=== PATIENT | male | born 1965 | race Caucasian/White ===

== ENCOUNTER → 2017-12-08 08:12 | Outpatient (REF) | payer BC, SELFPAY ==
[2017-12-08 13:40] LABS: ALT 35 U/L (12-78); AST 17 U/L (15-37); Alkaline Phosphatase 50 U/L (46-116); Anion Gap 9.8 mmol/L (3-11); BUN 19 mg/dL (7-18); Bilirubin, Total 0.7 mg/dL (0.2-1.0); CO2 26.2 mmol/L (21.0-32.0); CREATININE 1.03 mg/dL (0.70-1.30); Calcium 9.2 mg/dL (8.5-10.1); Chloride 102 mmol/L (98-107); Cholesterol 179 mg/dL (50-200); Glucose 199 mg/dL (70-100); HDL Cholesterol 45 mg/dL (40-60); LDL CHOLESTEROL 116 mg/dL (<100); Potassium 4.3 mmol/L (3.5-5.1); Sodium 138 mmol/L (136-145); Total Protein 6.8 g/dL (6.4-8.2); Triglyceride 135 mg/dL (30-150)
== END ==
LOC: NCHCN 08:12
PROVIDERS: PCP Family Medicine; Visit Provider Family Medicine
DX: I10 Essential (primary) hypertension (principal); E11.9 Type 2 diabetes mellitus without complications; E78.5 Hyperlipidemia, unspecified
CPT/HCPCS: 80053; 80061; 83721; 84443

== ENCOUNTER 2018-04-16 15:34 | Outpatient (REF) | payer BC, SELFPAY ==
[2018-04-16 20:17] LABS: COMMENT (LAB VIEW ONLY) 181.24 mg/dL; Microalb ug/mg Crea 4.6 ug/mg Cr
== END 2018-04-16 15:54 ==
LOC: NCHCN 15:34
PROVIDERS: PCP Family Medicine; Visit Provider Family Medicine
DX: E11.9 Type 2 diabetes mellitus without complications (principal)
CPT/HCPCS: 82043; 82570

== ENCOUNTER 2019-01-22 17:29 | Outpatient (REF) | payer OTHER, SELFPAY ==
[2019-01-22 18:40] LABS: Anion Gap 11.7 mmol/L (3-11); BUN 19 mg/dL (7-18); CO2 25.3 mmol/L (21.0-32.0); CREATININE 1.02 mg/dL (0.70-1.30); Calcium 8.9 mg/dL (8.5-10.1); Chloride 104 mmol/L (98-107); Glucose 140 mg/dL (70-100); Potassium 4.2 mmol/L (3.5-5.1); Sodium 141 mmol/L (136-145)
== END 2019-01-22 17:49 ==
LOC: NCHCN 17:29
PROVIDERS: PCP Family Medicine; Visit Provider Family Medicine
DX: I10 Essential (primary) hypertension (principal)
CPT/HCPCS: 80048

== ENCOUNTER 2020-01-07 23:23 | Outpatient (REF) | payer OTHER, SELFPAY ==
[2020-01-07 19:08] LABS: BUN 17 mg/dL (7-18); CREATININE 0.93 mg/dL (0.70-1.30); Calcium 9.4 mg/dL (8.5-10.1); Chloride 106 mmol/L (98-107); Glucose 137 mg/dL (74-106); Potassium 4.2 mmol/L (3.5-5.1); Sodium 142 mmol/L (136-145)
[2020-01-07 19:17] LABS: Hemoglobin A1C 7.8 % (<5.7)
== END 2020-01-07 23:43 ==
LOC: NCHCN 23:23
PROVIDERS: PCP Family Medicine; Visit Provider Family Medicine
DX: I10 Essential (primary) hypertension (principal); E11.9 Type 2 diabetes mellitus without complications
CPT/HCPCS: 80048; 83036

== ENCOUNTER 2020-01-17 02:40 | Outpatient (CLI) | payer OTHER, SELFPAY ==
[2020-01-18 20:22] LABS: COVID-19 RT-PCR Result NEGATIVE (Negative)
== END 2020-01-17 03:00 ==
PROVIDERS: PCP Family Medicine; Visit Provider Surgery
DX: Z01.818 Encounter for other preprocedural examination (principal)
CPT/HCPCS: U0003

== ENCOUNTER 2020-01-20 06:12 | Day surgery (SDC) | payer OTHER, SELFPAY ==
[2020-01-20 06:31] VITALS: BP 133/82; PULSE 69; RESP 16; TEMP 36.4; O2SAT 100
--- NOTE | 2020-01-20 06:41 | W.PREOPHP ---
Date of service: 01/20/20 Time of Service: 06:42 Assessment and Plan Assessment and plan (1) Nausea: Status: Acute Assessment and plan: (3) Nausea: A\\ New onset of nausea mostly in the middle of the night. No history of gastritis or reflux. Discussed differential diagnosis of gastritis. Discussed trialing him on an H2 don like Pepcid versus doing an upper endoscopy. We could do the upper endoscopy at the same time as his colonoscopy. He is in agreement with the upper endoscopy. He can try some Tums in the meantime when he wakes up with the nausea in the middle of the night. If it starts to become nightly issue then I have asked him to call me and I will put him on Pepcid to see if this will help. We also discussed COVID testing prior to the upper endoscopy. I discussed quarantine after the test until his procedure which he is in agreement with. P\\ EGD under sedation Risks, benefits and complications have been reviewed. Complications include but are not limited to bleeding, pain, perforation, sore throat, aspiration, and adverse reaction to the medications. Questions were entertained and answered to their satisfaction and they wished to proceed. No guarantees were given or implied. (2) Encounter for colonoscopy due to history of adenomatous colonic polyps: Status: Acute Assessment and plan: A\\ Harry is a pleasant 54-year-old gentleman who underwent a colonoscopy in 2014 and was found to have a tubular adenoma. He is here today to discuss a follow-up colonoscopy. He denies any changes to his bowel habits, melena, hematochezia or abdominal pain. He has no family history of colon cancer. The prep and procedure were reviewed with the patient. He is anticoagulated on Xarelto for history of PE and DVT. P\\ Colonoscopy under sedation Stop Xarelto 3 days prior Risks, benefits and complications have been reviewed. Complications include but are not limited to bleeding, pain, perforation, missed small lesion/polyp, sore throat, aspiration and adverse reaction to the medications. Questions were entertained and answered to their satisfaction and they wished to proceed. No guarantees were given or implied. History of Present Illness Narrative: Harry is back to see me today in the office to discuss a repeat colonoscopy. His last colonoscopy was in October 2014 and he had a tubular adenoma. He has not had any changes in bowel habits, melena, hematochezia, unintentional weight loss, or abdominal pain. He has no family history of colon cancer. He does tell me that over the last few weeks he has developed some nausea. Most of the time the nausea is in the middle of the night. He will wake up and feel like he has to throw up but does not. No burning epigastric pain. He has no history of gastritis, gastric ulcers or reflux. He does state that he has been quite stressed at work. He has not tried any medications. He has not had any major changes in his health since I saw him in 2014. He does not complaining of any chest pain, or shortness of breath. He is on Xarelto for a history of PE and DVTs. There have been no changes in his health since he was last seen in the office. His COVID test was negative Review of Systems Cardiovascular Cardiovascular: Denies chest pain, Denies chest pain at rest, Denies irregular heart rhythm, Denies dyspnea and Denies dyspnea on exertion Respiratory Respiratory: Reports cough, Denies dyspnea and Denies dyspnea on exertion Gastrointestinal Gastrointestinal: Reports as per HPI Genitourinary Genitourinary: Denies dysuria, Reports urinary incontinence and Denies urinary urgency Endocrine Endocrine: Reports system reviewed and no additional complaints, except as documented Hematologic/Lymphatic Hematologic/Lymphatic: Denies easy bruising and Denies lymphadenopathy [facility] Medical History Actinic keratoses Diabetes DVT of leg (deep venous thrombosis) Dyslipidemia Family history of gout HTN (hypertension) Hx of Wells's palsy Metabolic syndrome Nephrolithiasis Obesity Paraneoplastic syndrome pt. unaware PE (pulmonary embolism) 2011 T2DM (type 2 diabetes mellitus) Toe pain Tubular adenoma 10/2014 w/ Dr. Leda Ko, repeat 5 years. Surgical History Removal of foreign body left foot S/P colonoscopy 10/2014- Tubular adenoma Tonsillectomy and adenoidectomy Social History Smoking/Tobacco Use Status: Current-Occasional Tobacco Type: cigars Alcohol Intake: current Alcohol Intake frequency: a few times a month Alcohol type: beer Drug use: Occasionally Substance use type: marijuana Details: alcohol: t-4, two beers. Marijuana: t-4, couple hits Current gender identity: male Do you feel safe at home: Yes Do you feel safe in your relationship?: Yes Meds Home Medications and Allergies Home Medications Medication Instructions Recorded Confirmed Type Xarelto 20 mg PO DAILY tab-cap 09/11/14 01/17/20 History metformin 1 tab PO BID 09/11/14 01/17/20 History omega-3 fatty acids [Fish Oil] 1 cap PO DAILY 03/23/16 01/17/20 History acetaminophen 500 mg capsule 500 mg PO Q6H PRN 11/04/19 12/03/19 History cholecalciferol (vitamin D3) 25 25 mcg PO DAILY 11/04/19 01/17/20 History mcg (1,000 unit) capsule clotrimazole 1 % topical cream 1 applic TP BID 11/04/19 01/17/20 History sitagliptin 50 mg tablet 50 mg PO DAILY 11/04/19 01/17/20 History valsartan 160 mg tablet 160 mg PO DAILY 11/04/19 01/17/20 History bisacodyl 5 mg tablet,delayed 5 mg PO ONCE #4 tab 12/03/19 12/03/19 Rx release polyethylene glycol 3350 17 gram 255 g PO DAILY #15 each 12/03/19 12/03/19 Rx oral powder packet Allergies Allergy/AdvReac Type Severity Reaction Status Date / Time hay fever AdvReac Mild Wheezing Uncoded 12/03/19 11:33 Exam Const General: healthy appearing and comfortable Resp Effort & Inspection: normal respiratory effort Auscultation: clear to auscultation bilaterally Cardio Rate: regular rate Rhythm: regular rhythm Heart Sounds: no click, no gallops and no murmurs Results Last Vital Signs Temp 97.5 F L 01/20/20 06:31 Pulse 69 01/20/20 06:31 Resp 16 01/20/20 06:31 BP 133/82 01/20/20 06:31 Pulse Ox 100 01/20/20 06:31
--- NOTE | 2020-01-20 06:45 | ENDO_ITS ---
Date of service: 01/20/20 Time of Service: 07:25 Endoscopy Report DATE OF PROCEDURE: 01/20/20 PRE-OP DIAGNOSIS: Nausea, Hx of adenomatous polyps POST-OP DIAGNOSIS: other (Gastric ulcers, mild reflux esophagitis, colon polyps) PROCEDURE: 1. EGD with biopsies 2. Colonoscopy with polypectomy SURGEON: Tyra Ko ANESTHESIA: other (General/ASA 2/Latonia Racielki, ONLINE MARKETING SPECIALIST) ESTIMATED BLOOD LOSS: 3 PATHOLOGY: other (gastric ulcer bx, GE junction bx, Ascending colon polyp, transverse colon polyp x2) COMPLICATIONS: None DISPOSITION: same day INDICATIONS: Harry is back to see me today in the office to discuss a repeat colonoscopy. His last colonoscopy was in October 2014 and he had a tubular adenoma. He has not had any changes in bowel habits, melena, hematochezia, unintentional weight loss, or abdominal pain. He has no family history of colon cancer. He does tell me that over the last few weeks he has developed some nausea. Most of the time the nausea is in the middle of the night. He will wake up and feel like he has to throw up but does not. No burning epigastric pain. He has no history of gastritis, gastric ulcers or reflux. He does state that he has been quite stressed at work. He has not tried any medications. He has not had any major changes in his health since I saw him in 2014. He does not complaining of any chest pain, or shortness of breath. He is on Xarelto for a history of PE and DVTs. PREP: Miralax/Dulcolax PROCEDURE START TIME: 07:25 PROCEDURE END TIME: 08:03 COLONOSCOPY RETRACTION TIME: 14 minutes FINDINGS: Upper- moderate gastritis with 2 shallow ulcers, mild esophagitis Lower- 3 sessile polyps <10 mm PROCEDURE DESCRIPTION: After informed consent was obtained the patient was take to the procedure room and placed in a supine position. Monitors were applied and a time out was done. The patients name, date of , procedure type, allergies to medications and metal in their body was reviewed. A bite block was placed and the patient was sedated. Once sedated and comfortable the gastroscope was advanced through the oropharynx which was grossly normal into the esophagus. The proximal and mid- esophagus were normal. In the distal esophagus there was mild inflammation noted. The scope was advanced into the stomach and through the pylorus into the 3rd portion of the duodenum. The duodenum was noted to be normal. The scope was retracted back into the stomach. There was moderate inflammation of the antrum. Biopsies were done to rule out H. pylori. There were 2 shallow ulcers, which were biopsied. The scope was retro-flexed. The cardia and fundus were noted to be normal. There was no hiatal hernia noted. The scope was retracted back into the esophagus and biopsies were done of the GE junction to rule out Potter's. The Z line was regular. The GE junction was at 38 cm. While the patient was still sedated they were placed in a left decubitous position. A rectal exam was done. External exam was normal. Internal exam revealed a normal sphincter tone and no palpable masses. The prostate felt smooth. The scope was then introduced and retro-flexed. No internal hemorrhoids were identified. The scope was then advanced to the cecum without difficulty. The ileocecal valve and appendiceal orifice were identified. The prep was adequate. The scope was then slowly retracted over 14 minutes back into the rectum. 3 small sessile polyps were removed with cold forceps in the ascending colon and transverse colon x2. The scope was removed and the patient was woken up and taken back to Same day surgery in stable condition. The patient tolerated the procedure well and there were no immediate complications. Follow up: 2 weeks in the office. I will start patient on Omeprazole 40 mg daily. Colonoscopy follow up most likely in 3-7 years depending on final pathology results
--- NOTE | 2020-01-20 06:47 | W.PM.DSUDISC ---
Discharge Plan Disposition Patient Disposition: HOME Condition: Good Discharge Details Reason For Visit: nausea, hx of polyps Attending Provider: Tyra Ko Primary Care Provider: Ajay Monteiro Home Meds and New Rx's Prescriptions: New omeprazole 40 mg capsule,delayed release(DR/EC) 40 mg PO QHS Qty: 30 RF: 5 Continued Xarelto 10 MG tablet 20 mg PO DAILY RF: 0 metformin 500 MG tablet 1 tab PO BID RF: 0 clotrimazole [Antifungal (clotrimazole)] 1 % cream 1 applic TP BID RF: 0 acetaminophen 500 mg capsule 500 mg PO Q6H PRNRF: 0 Januvia 50 mg tablet 50 mg PO DAILY RF: 0 valsartan 160 mg tablet 160 mg PO DAILY RF: 0 cholecalciferol (vitamin D3) 25 mcg (1,000 unit) capsule 25 mcg PO DAILY RF: 0 Fish Oil 300 MG capsule 1 cap PO DAILY RF: 0 Discontinued bisacodyl [Dulcolax (bisacodyl)] 5 mg tablet,delayed release (DR/EC) 5 mg PO ONCE Qty: 4 RF: 0 polyethylene glycol 3350 17 gram powder in packet 255 g PO DAILY Qty: 15 RF: 0 Discharge Instructions Instructions: Gastritis (DC), Diet for Stomach Ulcers and Gastritis (ED), Colorectal Polyps (DC), Esophagitis (DC) Additional Instructions: Findings: moderate inflammation of the stomach with 2 shallow ulcers mild inflammation of the esophagus due to reflux 3 small polyps Follow up: 2 weeks in the office Please call if you develop: fevers >101.5 Nausea or Vomiting Abdominal pain that is not transient DAY SURGERY UNIT POST ENDOSCOPY INSTRUCTIONS 1. Because there will be medication in your system for the next 24 hours, you may feel a little sleepy. Your coordination will be affected. Therefore: a. Do not drive or operate dangerous equipment for 24 hours. b. Do not drink alcohol beverages for 24 hours (not even beer). c. Plan to go home and rest for the day. 2. Generally there are no restrictions on your activity after a day or so has gone by, but you may feel a bit fatigued for a few days. 3 After you arrive home you may have a light meal and return to a normal diet as you can tolerate it without feeling sick to your stomach. 4. After surgery, you may feel pain or discomfort. This should be only transient, but if it persists please contact your doctor. 5. If there are any questions regarding the findings of your procedure, please feel free to contact your doctor. 6. If you are unable to contact your doctor with a problem, contact the hospital at [phone]. 7. Continue all your regular medications unless directed otherwise. I understand the above instructions and have no questions. Signature of Patient or Responsible Adult Escort Date/Time Name of Responsible Adult Escort Signature of Nurse Date/Time Referrals: Tyra Ko MD [ [facility] STAFF PHYSICIAN] - 02/04/20 8:30 am Activity:: Activity as Tolerated Diet:: low acid Discharge Orders Discharge Orders: Discharge Order (Routine); Ordered 01/20/20 Ordered By: Tyra Ko DS: Diagnosis Discharge Diagnosis (1) Nausea: Status: Acute (2) Encounter for colonoscopy due to history of adenomatous colonic polyps: Status: Acute
[2020-01-20] MEDS: Lactated Ringers 1,000 ML 80 ML IV (06:55)
[2020-01-20] MEDS: Sodium Citrate 30 ML CUP (07:20)
--- NOTE | 2020-01-20 07:28 | BOWEL_PTH ---
PATIENT: Harry Cano LOC: [facility] U#:[id number] AGE/SX: 54/M ROOM: RE01/20/[address]: Tyra Ko MD : 1965 BED: DIS: 01/20/2020 SPEC #: [id number] RECD: 01/20/20 12:30 STATUS: GUEVARA RE #: [id number] QUINTON: 01/20/20 07:[address]: Tyra Ko DEPT: Surgical Specimen RECD BY: Farnaz Ramires ENTERED: 01/20/20 12:32 SP TYPE: Bowel OTHR DR: Ajay Monteiro Tissues: 1 - STOMACH BIOPSY 2 - ESOPHAGUS BIOPSY 3 - BIOPSY BOWEL 4 - BIOPSY BOWEL Procedures: GROSS AND MICRO LEVEL 4 Comments: [id number]
[2020-01-20 08:35] VITALS: BP 124/89; PULSE 67; RESP 16; TEMP 36.1; O2SAT 99
== END 2020-01-20 09:10 | disposition home or self-care (01) ==
PROVIDERS: PCP Family Medicine; Visit Provider Surgery
PROC: (CPT 45380; principal; 2020-01-20 07:30)
DX: Z12.11 Encounter for screening for malignant neoplasm of colon (principal); K29.60 Other gastritis without bleeding; D12.2 Benign neoplasm of ascending colon; D12.3 Benign neoplasm of transverse colon; Z86.010 Personal history of colon polyps
CPT/HCPCS: 45380; 43239; 88305; NC; J2001; J2704

== ENCOUNTER 2020-07-06 15:59 | Outpatient (REF) | payer OTHER, SELFPAY ==
[2020-07-06 19:37] LABS: COMMENT (LAB VIEW ONLY) 32.58 mg/dL
== END 2020-07-06 16:00 | disposition home or self-care (01) ==
LOC: NCHCN 15:59
PROVIDERS: PCP Family Medicine; Visit Provider Family Medicine
DX: E11.9 Type 2 diabetes mellitus without complications (principal)
CPT/HCPCS: 82043; 82570

== ENCOUNTER 2021-01-21 17:35 | Outpatient (REF) | payer OTHER, SELFPAY ==
[2021-01-21 15:44] LABS: Anion Gap 10.3 mmol/L (3-11); BUN 17 mg/dL (7-18); CO2 24.7 mmol/L (21.0-32.0); Calcium 9.2 mg/dL (8.5-10.1); Chloride 105 mmol/L (98-107); Glucose 184 mg/dL (74-106); Potassium 4.4 mmol/L (3.5-5.1); Sodium 140 mmol/L (136-145)
[2021-01-21 15:52] LABS: Hemoglobin A1C 6.3 % (<5.7)
== END 2021-01-21 17:36 | disposition home or self-care (01) ==
LOC: NCHCN 17:35
PROVIDERS: PCP Family Medicine; Visit Provider Family Medicine
DX: E11.9 Type 2 diabetes mellitus without complications (principal); I10 Essential (primary) hypertension
CPT/HCPCS: 80048; 83036

== ENCOUNTER → 2021-07-29 08:38 | Outpatient (CLI) | payer OTHER, SELFPAY ==
--- NOTE | 2021-07-29 | DI.RAD_ITS ---
Exam(s) XR TOE RT GREAT EXAM: XR TOE RT GREAT CLINICAL HISTORY: GREAT TOE PAIN, M79.676, WITHOUT CLEAR INFLAMMATION, H/O GOUT. TECHNIQUE: 2D digital imaging was performed. Three images were obtained. COMPARISON: No exams were available for comparison FINDINGS: BONES: No acute fracture is present. No bony destructive lesion is seen. JOINTS: No dislocation present. Moderate degenerative changes are seen at the 1st MTP joint with maggie nt space narrowing and periarticular spurring. There is a moderate-sized spur on the dorsal aspect o f the head of the 1st metatarsal. SOFT TISSUE: Normal. 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 DATA REPOSITORY: RADIATION DOSE DELIVERED:
== END ==
PROVIDERS: PCP Family Medicine; Visit Provider Family Medicine
DX: M79.674 Pain in right toe(s) (principal); M19.071 Primary osteoarthritis, right ankle and foot
CPT/HCPCS: 73660

== ENCOUNTER 2022-02-21 18:24 | Outpatient (REF) | payer OTHER, SELFPAY ==
[2022-02-21 19:20] LABS: Anion Gap 8.8 mmol/L (3-11); BUN 20 mg/dL (7-18); CO2 27.2 mmol/L (21.0-32.0); CREATININE 1.1 mg/dL (0.70-1.30); Calcium 9.3 mg/dL (8.5-10.1); Chloride 100 mmol/L (98-107); Estimated GFR 78.79 (mL/min/1.73m2); Glucose 173 mg/dL (74-106); Potassium 4.1 mmol/L (3.5-5.1); Sodium 136 mmol/L (136-145)
[2022-02-23 10:06] LABS: Hepatitis C Ab w Rflx HCV PCR Negative (Negative)
== END 2022-02-21 18:25 | disposition home or self-care (01) ==
LOC: NCHCN 18:24
PROVIDERS: PCP Family Medicine; Visit Provider Family Medicine
DX: I10 Essential (primary) hypertension (principal); E11.9 Type 2 diabetes mellitus without complications; Z11.59 Encounter for screening for other viral diseases
CPT/HCPCS: 80048; 86803

== ENCOUNTER 2023-03-02 14:21 | Outpatient (REF) | payer OTHER, SELFPAY ==
[2023-03-02 19:22] LABS: Anion Gap 12.1 mmol/L (3-11); BUN 15 mg/dL (7-18); CO2 24.9 mmol/L (21.0-32.0); Calcium 9.6 mg/dL (8.5-10.1); Chloride 104 mmol/L (98-107); Estimated GFR 87.78 (mL/min/1.73m2); Glucose 135 mg/dL (74-106); Potassium 4.4 mmol/L (3.5-5.1); Sodium 141 mmol/L (136-145)
== END 2023-03-02 14:22 | disposition home or self-care (01) ==
LOC: NCHCN 14:21
PROVIDERS: PCP Family Medicine; Visit Provider Family Medicine
DX: E11.9 Type 2 diabetes mellitus without complications (principal)
CPT/HCPCS: 80048

== ENCOUNTER 2023-06-30 20:50 | Outpatient (REF) | payer BC, SELFPAY ==
[2023-06-30 18:50] LABS: Hemoglobin A1C 7.2 % (<5.7)
== END 2023-06-30 20:51 | disposition home or self-care (01) ==
LOC: NCHCN 20:50
PROVIDERS: PCP Family Medicine; Referring Provider Family Medicine; Visit Provider Family Medicine
DX: E11.9 Type 2 diabetes mellitus without complications (principal)
CPT/HCPCS: 83036

== ENCOUNTER 2023-10-27 15:27 | Outpatient (REF) | payer BC, SELFPAY ==
[2023-10-27 20:22] LABS: Microalb ug/mg Crea 3.9 ug/mg Cr
== END 2023-10-27 15:28 | disposition home or self-care (01) ==
LOC: NCHCN 15:27
PROVIDERS: PCP Family Medicine; Visit Provider Student in an Organized Health Care Education/Training Program
DX: E11.9 Type 2 diabetes mellitus without complications (principal)
CPT/HCPCS: 82043; 82570

== ENCOUNTER 2024-03-29 16:35 | Outpatient (REF) | payer BC, SELFPAY ==
--- OUTSIDE RECORDS SUMMARY | 2024-03-29 16:51 | XMS_ITS | Clinical Summary ---
Author Organization [facility] Address [address] [place] [id number] Care Team Providers Care Press Reader Name Role Phone Jack Craft MD Primary Care Provider Unavaila ble Social History Tobacco Use Types Packs/Day Years Used Date Smoking Tobacco: Never Assessed Interpersonal Safety Answer Date Record ed Physically Hurt Never 02/02/2020 Verbally Threaten Not on file 02/02/2020 Sex and Gender Information Value Date Recorded Sex Assigned at Not on file Legal Sex Male 18:30 EST Gender Identity Not on file Sexual Orientation Not on file Plan of Treatment Health Maintenance Due Date Last Done Comments Hepatitis B Vaccine (1 of 3 - 19+ 3-dose series) 08/02 COVID-19 Vaccine ( season) 2024 Hepatitis C Screen Completed 02/21/2022 Procedures Procedure Name Priority Date/Time Associated Diagnosis Comments HEPATITIS C AB W REFLEX TO HCV RNA BY PCR Routine 02/21/2022 16:15 EDT from Last 3 Months or Most Recently Relevant to Health Maintenance Results * HEPATITIS C AB W REFLEX TO HCV RNA BY PCR (02/21/2022 16:15 EDT) Hep C Antibody Negative Negative 02/23/2022 10:01 EDT [facility] Blood VENOUS BLOOD / Unknown 02/21/2022 16:15 EDT 02/22/2022 16:50 EDT us Provider Outr Resulting Lab CHEMISTRY & BLOOD GA S ORDERABLES Final Result [facility] [address] [place] [id number] from Last 3 Months or Most Recently Relevant to Health Maintenance [place] [address] [place] [address] Care Teams Press Reader Relationship Specialty Start Date End Date Jack Craft MD PCP - General 11/05/14
--- OUTSIDE RECORDS SUMMARY | 2024-03-29 16:51 | XMS_ITS | Encounter Summary ---
Author Organization [facility] Address [address] [place] [address] Care Team Providers Care Sports Internship Name Role Phone Jack Craft MD Primary Care Provider Unavaila ble Encounter Details Date Type Department Care Team (Late st Contact Info) Description 01/20/2020 Lab Requisition [facility] - [facility] [address] [place] [address] Neda Ko MD [address] [place] [address] [place] [address] Nausea Social History Tobacco Use Types Packs/Day Years Used Date Smoking Tobacco: Never Assessed Sex and Gender Information Value Date Recorded Sex Assigned at Not on file Legal Sex Male 18:30 EST Gender Identity Not on file Sexual Orientation Not on file documented as of this encounter Plan of Treatment Not on file documented as of this encounter Procedures Procedure Name Priority Date/Time Associated Diagnosis Comments SURGICAL PATHOLOGY Today 01/20/2020 7:28 EDT Nausea documented in this encounter Results * SURGICAL PATHOLOGY (01/20/2020 7:28 EDT) Final Diagnosis A. STOMACH, ANTRUM, BIOPSY: - Erosive gastritis in a background of reactive (chemical) gastropathy. B. GASTROESOPHAGEAL JUNCTION, BIOPSY: - Squamocolumnar junctional mucosa with active reflux esophagitis. - Negative for intestinal metaplasia; Negative for dysplasia. C. COLON, ASCENDING, POLYP, BIOPSY: - Tubular adenoma. D. COLON, TRANSVERSE, POLYPS, BIOPSY: - Tubular adenomas. 01/21/2020 17:41 EDT [facility] Attestation By the signature below, the attending physician certifies that they have 1) personally conducted a gross and/or microscopic examination of the described specimen(s), and/or personally interpreted the results of laboratory testing of the described specimen(s), and 2) personally rendered or confirmed the above diagnosis. 01/21/2020 17:41 [facility] at 1741 Clinical History Nausea 01/21/2020 17:41 [facility] Gross Description A. Received in formalin labelled with proper patient identification (initials T, P) and Bx gastric antrum are 3 fragments of bocanegra tissue measuring 0.2 cm and 0.3 cm in greatest dimension. The specimens are submitted entirely in A1. B. Received in formalin labelled with proper patient identification (initials T, P) and Bx GE junction are 2 fragments of white tissue measuring 0.2 cm and 0.5 cm in greatest dimension. The the specimens are submitted entirely in B1. C. Received in formalin labelled with proper patient identification (initials T, P) and ascending colon polyp is a single fragment of bocanegra tissue (0.2 x 0.2 x 0.2 cm). The specimen is submitted entirely in C1. D. Received in formalin labelled with proper patient identification (initials T, P) and transverse colon polyps are 2 fragments of bocanegra-brown tissue; each measuring 0.3 x 0.2 x 0.2 cm. The specimens are submitted entirely in D1. 01/20/2020 15:59 01/21/2020 17:41 [facility] Performing Lab [facility] 17:41 [facility] Scanned Images 01/21/2020 17:41 [facility] Tissue ENTIRE TRANSVERSE CO GLENDY / Unknown 01/20/2020 7:28 EDT 01/20/2020 15:29 EDT Tissue specimen (specimen) CARDIOESOPHAGEAL JUNCTION STRUCTURE / Unknown 01/20/2020 7:28 EDT 01/20/2020 15:29 EDT Tissue specimen (specimen) ASCENDING COLON STRUCTURE / Unknown 01/20/2020 7:28 EDT 01/20/2020 15:29 EDT Tissue specimen (specimen) TRANSVERSE COLON STRUCTURE / Unknown 01/20/2020 7:28 EDT 01/20/2020 15:29 EDT us Neda Ko MD PATHOLOGY ORDERABLES Fin al Result [facility] [address] [place] [address] documented in this encounter Visit Diagnoses Diagnosis Nausea Nausea alone documented in this encounter Care Teams Sports Internship Relationship Specialty Start Date End Date Jack Craft MD PCP - General 11/05/14 documented as of this encounter
--- OUTSIDE RECORDS SUMMARY | 2024-03-29 16:51 | XMS_ITS | Referral Summary ---
Author Organization [facility] Address [address] [place] [id number] Care Team Providers Care Tag Writer Name Role Phone Jack Craft MD Primary [...] Orientation Not on file Plan of Treatment Not on file Procedures Procedure Name Priority Date/Time Associated Diagnosis Comments HEPATITIS C AB W REFLEX TO HCV RNA BY PCR Routine 02/21/2022 16:15 EDT from Last 3 Months or Most Recently Relevant to Health Maintenance Results * HEPATITIS C AB W REFLEX TO HCV RNA BY PCR (02/21/2022 16:15 EDT) Hep C Antibody Negative Negative 02/23/2022 10:01 EDT [facility] Blood VENOUS BLOOD / Unknown 02/21/2022 16:15 EDT 02/22/2022 16:50 EDT us Provider Outr Resulting Lab CHEMISTRY & BLOOD GA S ORDERABLES Final Result [facility] [address] [place] [address] from Last 3 Months or Most Recently Relevant to Health Maintenance Insurance [facility] Care Teams Tag Writer Relationship Specialty Start Date End Date Jack Craft MD PCP - General 11/05/14
--- OUTSIDE RECORDS SUMMARY | 2024-03-29 16:51 | XMS_ITS | Encounter Summary ---
Author Organization [facility] Address [address] [place] [address] Care Team Providers Care Curb Hop Name Role Phone Cha Miguel MD Primary Care Provider [phone] Encounter Details Date Type Department Care Team (Latest Contact Info) Description 11/03/2014 10:49 EDT - 11/03/2014 10:58 EDT Hospital Encounter [address] [id number] Unknown, Provider, MD Discharge Disposition: Home or Self Care Social History Tobacco Use Types Packs/Day Years Used Date Smoking Tobacco: Never Assessed Sex and Gender Information Value Date Recorded Sex Assigned at Not on file Legal Sex Male 18:30 EST Gender Identity Not on file Sexual Orientation Not on file documented as of this encounter Discharge Disposition Disposition Code Departure Means Destination Home or Self Assisted documented in this encounter Plan of Treatment Not on file documented as of this encounter Visit Diagnoses Not on filedocumented in this encounter Care Teams Curb Hop Relationship Specialty Start Date End Date Cha Miguel MD [address] [place] [phone] PCP - General 01/27/11 11/04/14 documented as of this encounter
--- OUTSIDE RECORDS SUMMARY | 2024-03-29 16:51 | XMS_ITS | Encounter Summary ---
Author Organization [facility] Address [address] [place] [address] Care Team Providers Care Financial Engineer Name Role Phone Jack Craft MD Primary Care Provider Unavaila ble Encounter Details Date Type Department Care Team (Late st Contact Info) Description 01/17/2020 Lab Requisition [facility] - [facility] [address], [place] [id number] Outr Resulting Lab, Provider Social History Tobacco Use Types Packs/Day Years [...] Procedure Name Priority Date/Time Associated Diagnosis Comments DO NOT ORDER STANDALONE - BROAD COVID TEST Today 01/17/2020 8:57 EDT COVID-19 TESTING Routine 01/17/2020 8:57 EDT documented in this encounter Results * DO NOT ORDER STANDALONE - BROAD COVID TEST (01/17/2020 8:57 EDT) COVID-19 rt-PCR Result NEGATIVE Negative 01/18/2020 19:36 EDT [facility] Comment: 2019-novel Coronavirus (2019-nCoV) not detected by the qRT-PCR assay. Consider testing for other respiratory viruses or re-collecting for 2019-nCoV testing. Note: Optimum timing for peak viral levels during infections caused by 2019-nCoV have not been determined. Collection of multiple specimens from the same patient may be necessary to detect the virus. Limitations Positive results are indicative of active infection with SARS-CoV-2 but do not rule out bacterial infection or co-infection with other viruses. The agent detected may not be the definite cause of disease. In addition, detection of viral RNA may not indicate the presence of infectious virus or that SARS-CoV-2 is the causative agent for clinical symptoms. Negative results do not preclude SARS-CoV-2 infection and should not be used as the sole basis for patient management decisions. Negative results must be combined with clinical observations, patient history, and epidemiological information. False negative results may also occur if amplification inhibitors are present in the specimen or if inadequate numbers of organisms are present in the specimen. Optimum specimen types and timing for peak viral levels during infections caused by SARS-CoV-2 have not been fully determined. Collection of multiple specimens (types and time points) from the same patient may be necessary to detect the virus. The test was validated for use with upper respiratory specimens obtained via nasopharyngeal or oropharyngeal swabs in VTM, UTM, M4, M5, M6, saline, and MTM media. The performance of this test has not been established for other specimens. Specimens collected using other FDA recommended Specimen Collection Materials listed in the FDA COVID-19 [employer] communication (August 01, 2019) are processed with the caveat that they were not all validated for use with this test and the result must be interpreted in this context. Furthermore, a false negative results may occur if a specimen is improperly collected, transported or handled. If the virus mutates in the RT-PCR target region, SARS-CoV-2 may not be detected or may be detected less predictably. Inhibitors or other types of interference may produce a false negative result. An interference study evaluating the effect of common cold medications was not performed. This test is not FDA-cleared but its performance characteristics were established by our CLIA-certified, CAP-accredited, high complexity laboratory in accordance with CLIA regulations, [employer] [place] (CAP) guidelines (Jul 25, 2019), and FDA guidance (Jul 06, 2019). This test is only for use under the Food and Drug Administration's Emergency Use Authorization. Swab ENTIRE NASOPHARYNX / Unknown 01/17/2020 8:57 EDT 01/17/2020 16:13 EDT us Provider Outr Resulting Lab MICROBIOLOGY - GENER AL ORDERABLES Final Result [facility] [place], [place] * COVID-19 TESTING (01/17/2020 8:57 EDT) COVID-19 rt-PCR Result NEGATIVE Negative 01/18/2020 20:18 EDT [facility] Comment: 2019-novel Coronavirus (2019-nCoV) not detected by the qRT-PCR assay. Consider testing for other respiratory viruses or re-collecting for 2019-nCoV testing. Note: Optimum timing for peak viral levels during infections caused by 2019-nCoV have not been determined. Collection of multiple specimens from the same patient may be necessary to detect the virus. Limitations Positive results are indicative of active infection with SARS-CoV-2 but do not rule out bacterial infection or co-infection with other viruses. The agent detected may not be the definite cause of disease. In addition, detection of viral RNA may not indicate the presence of infectious virus or that SARS-CoV-2 is the causative agent for clinical symptoms. Negative results do not preclude SARS-CoV-2 infection and should not be used as the sole basis for patient management decisions. Negative results must be combined with clinical observations, patient history, and epidemiological information. False negative results may also occur if amplification inhibitors are present in the specimen or if inadequate numbers of organisms are present in the specimen. Optimum specimen types and timing for peak viral levels during infections caused by SARS-CoV-2 have not been fully determined. Collection of multiple specimens (types and time points) from the same patient may be necessary to detect the virus. The test was validated for use with upper respiratory specimens obtained via nasopharyngeal or oropharyngeal swabs in VTM, UTM, M4, M5, M6, saline, and MTM media. The performance of this test has not been established for other specimens. Specimens collected using other FDA recommended Specimen Collection Materials listed in the FDA COVID-19 [employer] communication (August 01, 2019) are processed with the caveat that they were not all validated for use with this test and the result must be interpreted in this context. Furthermore, a false negative results may occur if a specimen is improperly collected, transported or handled. If the virus mutates in the RT-PCR target region, SARS-CoV-2 may not be detected or may be detected less predictably. Inhibitors or other types of interference may produce a false negative result. An interference study evaluating the effect of common cold medications was not performed. This test is not FDA-cleared but its performance characteristics were established by our CLIA-certified, CAP-accredited, high complexity laboratory in accordance with CLIA regulations, [employer] [place] [employer] (CAP) guidelines (Jul 25, 2019), and FDA guidance (Jul 06, 2019). This test is only for use under the Food and Drug Administration's Emergency Use Authorization. Performing Lab [facility] 01/18/2020 20:18 EDT [facility] Swab 01/17/2020 8:57 EDT 01/17/2020 16:13 EDT us Provider Outr Resulting Lab MICROBIOLOGY - GENER AL ORDERABLES Final Result [facility] [address] [place] [address] [facility] [place], [place] documented in this encounter Visit Diagnoses Not on filedocumented in this encounter Care Teams Financial Engineer Relationship Specialty Start Date End Date Jack Craft MD PCP - General 11/05/14 documented as of this encounter
--- OUTSIDE RECORDS SUMMARY | 2024-03-29 16:51 | XMS_ITS | Encounter Summary ---
Author Organization [facility] Address [address] [place] [address] Care Team Providers Care Internal Grinder Tender Name Role Phone Jack Craft MD Primary Care Provider Unavaila ble Encounter Details Date Type Department Care Team (Late st Contact Info) Description 02/22/2022 Lab Requisition [facility]ology & Laboratory Medicine - [facility] [place] [address], [place] [id number] Outr Resulting Lab, Provider Social History Tobacco [...] RNA BY PCR Routine 02/21/2022 16:15 EDT documented in this encounter Results * HEPATITIS C AB W REFLEX TO HCV RNA BY PCR (02/21/2022 16:15 EDT) Hep C Antibody Negative Negative 02/23/2022 10:[address] [facility] Blood VENOUS BLOOD / Unknown 02/21/2022 16:15 EDT 02/22/2022 16:50 EDT us Provider Outr Resulting Lab CHEMISTRY & BLOOD GA S ORDERABLES Final Result [facility] [address] [place] [address] documented in this encounter Visit Diagnoses Not on filedocumented in this encounter Care Teams Internal Grinder Tender Relationship Specialty Start Date End Date Jack Craft MD PCP - General 11/05/14 documented as of this encounter
--- OUTSIDE RECORDS SUMMARY | 2024-03-29 16:52 | XMS_ITS | Encounter Summary ---
Author Organization [facility] Address [facility] [address] Care Team Providers Care Farm Forestry [employer] Garden Workers Name Role Phone Cha Ma MD Primary Care Provider Encounter Details Date Type Department Care Team (Late st Contact Info) Description 01/07/2015 9:00 AM EDT Office Visit Urology at [facility] [place] [address] Dalia Olivera MD [facility] [place] [address] Calculus of ureter (Primary Dx); Gross hematuria Discharge Disposition: Home Social History Tobacco Use Types Packs/Day Years Used Date Smoking Tobacco: Passive Smo ke Exposure - Never Smoker Cigars Sex and Gender Information Value Date Recorded Sex Assigned at Not on file Gender Identity Not on file Sexual Orientation Not on file documented as of this encounter Last Filed Vital Signs Vital Sign Reading Time Taken Comments Blood Pressure 134/97 01/07/2015 9:13 AM EDT Pulse 80 01/07/2015 9:13 AM EDT Temperature - - Respiratory Rate - - Oxygen Saturation 97% 01/07/2015 9:13 AM EDT Inhaled Oxygen Concentration - - Weight 83.9 kg (185 lb) 01/07/2015 9:13 AM EDT Height 162.6 cm (5' 4) 01/07/2015 9:13 AM EDT Body Mass Index 31.76 01/07/2015 9:13 AM EDT documented in this encounter Progress Notes * Dalia Olivera MD - 01/07/2015 9:19 AM EDT I had the pleasure of meeting Mr. Cano in clinic today in consultation for a right ureteral stone. He was referred for urological consultation by CHA MA MD (General). I personally reviewed aHrry Cano's previous records in detail today. These show that he is a 49 y.o. male who had right flank pain and gross hematuria in early December. He saw Dr. Craft in [facility] and underwent a CT scan (stone protocol) on 12/17/14. This shows a 4-5mm mid right ureteral stone with moderate right hydronephrosis. Of note, Dr. Craft???s note state that the patient is in need for long-term anticoagulation due to a history of unprovoked pulmonary embolism and DVTs. His anticoagulation with Xarelto was held given the stone and hematuria. Today, he confirms that he had gross blood in his urine, but no clots. Since his CT scan, he had nomore pain. However, he states that he had very little pain even when he initially presented. No more gross hematuria since he stopped taking the Xarelto. He denies any history of stones, urinary infections, or urologic trauma. His urinary symptoms include no bothersome symptoms. His AUA-SS today is 3 with a BI of 1. Very occasional post-void dribbling. The patient denies any prior history of cancer. His family history is negative for any urologic malignancies. He does not have any history of tobacco use, except for a cigar once or twice a month. PMH: Patient Active Problem List Diagnosis Code ??? Pulmonary embolism 415.19 history of DVTs DM II Hypercholesterolemia PSH: Foreign object removal from left foot approximately 8-9 years ago Current outpatient prescriptions: glyBURIDE (DIABETA) 2.5 mg Tablet, Take 2.5 mg by mouth daily (with breakfast)., Disp: , Rfl: ; atorvastatin (LIPITOR) 10 mg Tablet, Take 10 mg by mouth daily., Disp: , Rfl: ; metFORMIN (GLUCOPHAGE) 500 mg Tablet, Take 500 mg by mouth 2 times daily (with meals)., Disp: , Rfl: No Known Allergies History Social History ??? Marital Status: Spouse Name: N/A Number of Children: N/A ??? Years of Education: N/A Occupational History ??? Not on file. Social History Main Topics ??? Smoking status: Passive Smoke Exposure - Never Smoker -- 10 years Types: Cigars ??? Smokeless tobacco: Not on file ??? Alcohol Use: Not on file ??? Drug Use: Not on file ??? Sexual Activity: Not on file Other Topics Concern ??? Not on file Social History Narrative REVIEW OF SYSTEMS: 10 out of 14-point systems was reviewed and is as per the history. In addition, the patient notes back pain, hay fever. PHYSICAL EXAM: BP 134/97 mmHg Pulse 80 Ht 162.6 cm (5' 4) Wt 83.915 kg (185 lb) BMI 31.74 kg/m2 SpO2 97% General: Patient is a well-appearing male in no acute distress. Head: normocephalic, atraumatic. ENT: moist mucous membranes, supple neck, midline trachea Heart: regular heart rate Lungs: respirations unlabored, no audible wheezing. Abdomen: soft, nontender, nondistended, no palpable masses. Back: No flank tenderness bilaterally. : circumcised, normal-appearing meatus, bilateral descended testes, nontender, no masses. HOSSEIN: 20 gram prostate, smooth with no nodules. Extremities: warm, ++ LLE swelling, chronic Neuro: awake, alert, oriented to conversation, normal gait, neurologically grossly intact LABS: Urine analysis today: POC test completely within normal limits, heme negative Creatinine: 1.05 today IMAGING: I personally reviewed and reviewed with the patient his most recent non-con CT scan a/p stone protocol with findings as noted above. ASSESSMENT AND PLAN: Mr. Harry Cano is a 49 y.o. male with a history of gross hematuria and right ureterolithiasis. We checked a BMP today to make sure his renal function is still normal, which it was. We will plan to have him come back in [address] Urogram and cysto in 2 weeks to complete his hematuria evaluation. We also discussed that if the stone is still present on repeat imaging, I would likely recommend to proceed with cystoscopy and ureteroscopy with laser lithotripsy for further stone treatment. In addition, I recommended that he restart Xarelto as his risk for thromboembolic events seems quite high given his history. There is no surgical reason for him to stay off anticoagulation at this point. We discussed that he needs to present to an ER immediately should he experience fevers/chills/uncontrolled pain. DALIA OLIVERA MD documented in this encounter Plan of Treatment Not on file documented as of this encounter Procedures Procedure Name Priority Date/Time Associated Diagnosis Comments BASIC METABOLIC PANEL Routine 01/07/2015 10:14 AM EDT Calculus of ureter documented in this encounter Results * CT Abdomen & Pelvis With/Wo Contrast (01/21/2015 8:39 AM EDT) Anatomical Region Laterality Modality Abdomen, Pelvis Computed Tomogra phy 01/21/2015 8:39 AM EDT Impressions 01/21/2015 9:49 AM EDT IMPRESSION: 1. ??The right ureteral calculus seen on the prior study is no longer present, and the hydronephrosis has resolved. 2. ??No renal mass or urothelial filling defect/neoplasm visualized. Narrative 01/21/2015 9:49 AM EDT EXAMINATION: CT Abdomen / Pelvis With and Without Contrast CLINICAL HISTORY: gross hematuria evaluation, CTU please, thanks! TECHNIQUE: Helical CT of the abdomen and pelvis was performed prior to and following intravenous administration of 110 ml of Omnipaque 350. ??3D VR and MIP images were reformatted on a separate workstation and reviewed as part of this study. COMPARISON: 12/17/2014 from outside hospital FINDINGS: Right kidney and ureter: The right ureteral calculus seen on the comparison study is no longer present. The degree of collecting system dilatation has improved. No renal lesions. ??No filling defect in the collecting system, which was imaged in its entirety. Left kidney and ureter: No calculi. ?? No hydronephrosis or hydroureter. ?? No renal lesions. ?? No filling defect in the collecting system, which was visualized in its entirety. Urinary bladder: Normal, no calculi, or visible mass. Lung bases unremarkable. Liver: Normal. Gallbladder and biliary system: No calcified stones or biliary ductal dilation. Spleen: Normal. Pancreas: Normal. Adrenal glands: Normal. No free fluid in the abdomen or pelvis. No abdominal or pelvic lymphadenopathy. Bowel and mesentery: No inflammatory or obstructive process. Osseous structures: No suspicious lytic or sclerotic osseous lesion. Mild degenerative changes noted in the spine. Procedure Note Kim Berg MD - 01/21/2015 EXAMINATION: CT Abdomen / Pelvis With and Without Contrast CLINICAL HISTORY: gross hematuria evaluation, CTU please, thanks! TECHNIQUE: Helical CT of the abdomen and pelvis was performed prior toand following intravenous administration of 110 ml of Omnipaque 350. 3D VRand MIP images were reformatted on a separate workstation and reviewed as part ofthis study. COMPARISON: 12/17/2014 from outside hospital FINDINGS: Right kidney and ureter: The right ureteral calculus seen on thecomparison study is no longer present. The degree of collecting system dilatationhas improved. No renal lesions. No filling defect in the collecting system,which was imaged in its entirety. Left kidney and ureter: No calculi. No hydronephrosis or hydroureter.No renal lesions. No filling defect in the collecting system, which was visualized in its entirety. Urinary bladder: Normal, no calculi, or visible mass. Lung bases unremarkable. Liver: Normal. Gallbladder and biliary system: No calcified stones or biliary ductaldilation. Spleen: Normal. Pancreas: Normal. Adrenal glands: Normal. No free fluid in the abdomen or pelvis. No abdominal or pelvic lymphadenopathy. Bowel and mesentery: No inflammatory or obstructive process. Osseous structures: No suspicious lytic or sclerotic osseous lesion.Mild degenerative changes noted in the spine. IMPRESSION IMPRESSION: 1. The right ureteral calculus seen on the prior study is no longerpresent, and the hydronephrosis has resolved. 2. No renal mass or urothelial filling defect/neoplasm visualized. Dalia Olivera MD [facility] CT ORDERABLES * Basic Metabolic Panel (non-fasting) (01/07/2015 10:14 AM EDT) Glucose 106 65 - 199 mg/dL [facility]NI[facility] Comment:Diabetes: >=200 mg/d L plus symptoms Blood Urea Nitrogen 18 10 - 20 mg/dL CERNER MILLENNIUM Creatinine 1.05 0.80 - 1.50 mg/dL [facility] MILLENNIUM Comment: Please note that the pediatric reference intervals supplied above were not validated at [facility]. Results from pediatric patients should be interpreted in conjunction to the patient's age, height and muscle mass. Sodium 140 135 - 145 mmol/L [facility]ERNER MILLENNIUM Potassium 4.9 3.5 - 5.0 mmol/L [facility] MILLENNIUM Comment: Please note: ??Patients with WBC >100,000 may have falsely elevated Potassium levels. ??For accurate Potassium quantification in these patients send serum separator tube (gold top) for subsequent determinations. ??Contact the Clinical Chemistry Laboratory if there are any questions. Chloride 100 98 - 107 mmol/L CERNER MILLENNIUM Carbon Dioxide 26 22 - 31 mmol/L CERNER MILLENNIUM Anion Gap 14 5 - 15 mmol/L CERNER MILLENNIUM Calcium 9.8 8.5 - 10.5 mg/dL CERNER MILLENNIUM Est Glomerular Filtration Rate >60 >=60 [facility]ERNER MILLENNIUM Comment: This estimated GFR (eGFR) value was calculated using the MDRD equation which has been validated on patients between the ages of 18 and 70. The MDRD should not be used to assess kidney function in patients < 18 years of age or in patients with extremes of body mass, or in patients with acute kidney failure. This value should be multiplied by 1.2 for patients. For further information please copy and paste the following links into your internet browser. [email or web address] Blood specimen (specimen) 01/07/2015 10:14 AM EDT 01/07/2015 10:35 AM EDT Narrative Resulting Agency Comment Spec In Lab Dalia Olivera MD CHEMISTRY ORDERABL ES AMIE KIMBROUGH documented in this encounter Visit Diagnoses Diagnosis Calculus of ureter- Primary Gross hematuria Gross hematuria documented in this encounter Care Teams [employer] Forest[employer] Workers Relationship Specialty Start Date End Date Cha Ma MD [address] [place] [address] PCP - General 05/21/12 01/20/15 documented as of this encounter
--- OUTSIDE RECORDS SUMMARY | 2024-03-29 16:52 | XMS_ITS | Encounter Summary ---
Author Organization [facility] Address [address] [place] [address] Care Team Providers Care Automatic I Threading Machine Feeder Name Role Phone Unavailable Primary Care Provider Unavailabl e Encounter Details Date Type Department Care Team (Late st Contact Info) Description 01/24/2011 Results Only [facility] - [facility] [place] [address] [place] [address] Livia Garcia MD [address] [place] [address] Social History Tobacco Use Types Packs/Day Years [...] Priority Date/Time Associated Diagnosis Comments SURGICAL PATHOLOGY Routine 01/24/2011 0:00 EDT documented in this encounter Results * SURGICAL PATHOLOGY (01/24/2011 0:00 EDT) Pathology Report: SURGICAL PATHOLOGY REPORT ? Reports generated via electronic interface contain original data; ? however they are lacking the format of the original report. ? Caution should be taken when reading/interpreti ng unformatted reports. ? Name: ? TOMASI, HARRY ? Accession #: ? [id number] ? : ? 1965 (Age: 45) ??M ? Collect Date: ? 01/24/2011 ? Location: ? [facility] ? Receive Date: ? 01/25/2011 ? Provider: LIVIA GARCIA MD ? Copy to: KISHOR MA MD ? Final Pathologic Diagnosis: ? Skin of lip, right upper, shave biopsy: ? - Melanocytic nevus, intradermal type. ? Microscopic Description: ? Sections are of a papule with mild epidermal hyperplasia and ? hyperkeratosis. ??There is a proliferation of melanocytes within the dermis. ??The proliferation consists of nests, cords, and strands that diminish in size with ?? descent into the dermis. ??The melanocytes are slightly enlarged but generally ?? have round-oval nuclei and a moderate amount of cytoplasm. ??The melanocytes show field account director maturation. ??(Dr. Lewis)/m ? Document reviewed and electronically signed by: ? GONZALO VILLANUEVA MD ? Report ??Date: 01/27/2011 11:55 ? By the signature above, the attending physician certifies that he/she has ? personally conducted a gross and/or microscopic examination of the described ? specimens and rendered or confirmed the above diagnosis. ? Specimen(s) Received: ? Shave biopsy skin R upper lip ? Clinical History: ? Not listed ? Gross Description: ? Received in formalin labelled Harry Cano and shave biopsy skin R upper lip is a 0.5 x 0.4 cm irregular shave biopsy of bocanegra-white skin. ??There is a ? slightly eccentric 0.3 x 0.3 x 0.2 cm circular, bocanegra-white, hairbearing papule. ?? The specimen is bisected and entirely submitted in a single cassette. ??(A. ? Meliza)/faithn ? End of Report ? [facility] 01/24/2011 01/25/2011 21: 04 EDT us Livia Garcia MD PATHOLOGY ORDERABLES Final Resul t [facility] [address] [place] [address] documented in this encounter Visit Diagnoses Not on filedocumented in this encounter
--- OUTSIDE RECORDS SUMMARY | 2024-03-29 16:52 | XMS_ITS | Encounter Summary ---
Author Organization [facility] Address [address] [place] [address] Care Team Providers Care Video Software Engineer Name Role Phone Unavailable Primary Care Provider Unavailabl e Encounter Details Date Type Department Care Team (Late st Contact Info) Description 02/15/2002 Results Only [facility] [address] [place] [address] Karen Gutierrez, [facility] [address] [address] Social History Tobacco Use Types Packs/Day Years [...] Date/Time Associated Diagnosis Comments SURGICAL PATHOLOGY Routine 02/15/2002 0:00 EDT documented in this encounter Results * SURGICAL PATHOLOGY (02/15/2002 0:00 EDT) Pathology Report: SURGICAL PATHOLOGY REPORT Reports generated via electronic interface contain original data; however they are lacking the format of the original report. Caution should be taken when reading/interpreti ng unformatted reports. Name: ? HARRY AZEVEDO ? Accession #: ? [id number] ? : ? 1965 (Age: 36) ??M ? Collect Date: ? 02/15/2002 ? Location: ? [facility] ? Receive Date: ? 02/19/2002 ? Provider: KAREN GUTIERREZ NP Copy to: BRIGETTE SHAFER MD ? Final Pathologic Diagnosis: ? Skin of groin, left, shave biopsy: - Acrochordon. Document reviewed and electronically signed by: Joe Dsouza MD Report ??Date: 02/20/2002 17:24 By the signature above, the attending physician certifies that he/she has personally conducted a gross and/or microscopic examination of the described specimens and rendered or confirmed the above diagnosis. Specimen(s) Received: ? Left groin Clinical History: ? Skin tag; clinical diagnosis code: 701.9 Gross Description: ? Received in formalin labelled Tomasi and skin tag is a stephen-brown polypoid skin covered nodule measuring 0.7 x 0.5 x 0.3 cm. ??The specimen is bisected and submitted entirely in one cassette. ??(JOVI Lux)/albert End of Report YUMIKO DALTON 02/15/2002 02/19/2002 9:0 2 EDT us Karen Gutierrez NP PATHOLOGY ORDERABLES Final R esult YUMIKO DALTON [address] [place] [address] documented in this encounter Visit Diagnoses Not on filedocumented in this encounter
--- OUTSIDE RECORDS SUMMARY | 2024-03-29 16:52 | XMS_ITS | Encounter Summary ---
Author Organization [facility] [place] [address] Care Team Providers Care Portable Irrigation Operator Name Role Phone Cha Miguel MD Primary Care Provider [phone] Encounter Details Date Type Department Care Team (Late st Contact Info) Description 02/03/2014 Orders [place] [address] Aparna Khan salmon troll fisher deep vein thrombosis of left lower extremity (Primary Dx) Social History Tobacco Use Types Packs/Day Years Used Date Smoking Tobacco: Passive Smo ke Exposure - Never Smoker Cigars Sex and Gender Information Value Date Recorded Sex Assigned at Not on file Gender Identity Not on file Sexual Orientation Not on file documented as of this encounter Plan of Treatment Not on file documented as of this encounter Results * Duplex for DVT, Leg, Unilat (02/17/2014 1:58 PM EDT) VB Text Report Department: Vascular Surgery Lab Patient: [id number] (JOLLYHARRY) CPT Code: 79540 ICD-9: 451.19 Referring Physician: PORTIA BRADY Indication: Left calf edema ICD9 Diagnosis Code: 451.19 LEFT: The paired peroneal veins has non-occlusive thrombus throughout the calf. Patent common femoral vein and popliteal vein with spontaneous, respirophasic Doppler waveforms that respond normally to augmentation maneuvers. The common femoral vein, saphenofemoral junction, femoral vein through the thigh and popliteal vein are fully compressible. Patent posterior tibial veins with no evidence of thrombus. Interpretation: LEFT: Lower extremity deep venous non-occlusive thrombus (Calf, peroneal veins). Electronically Signed by: JOY HALL on 2014-02-17 04:25:31 PM VASCU[facility] VB Text Report End of Report VAS[facility] 02/17/2014 1:58 PM EDT Portia Brady MD VASCULAR ORDERABLES [facility] documented in this encounter Visit Diagnoses Diagnosis Acute deep vein thrombosis of left lower extremity- Primary Acute venous embolism and thrombosis of unspecified deep vessels of lower extremity documented in this encounter Care Teams Portable Irrigation Operator Relationship Specialty Start Date End Date Cha Miguel MD [address] [place] [address] PCP - General 05/21/12 01/20/15 documented as of this encounter
--- OUTSIDE RECORDS SUMMARY | 2024-03-29 16:52 | XMS_ITS | Encounter Summary ---
[place] [address] Care Team Providers Care Coal Pipeline Operator Name Role Phone Jack Craft MD Primary Care Provider [phone] Reason for Visit * Reason Comments Skin Check New patient * Consultation (Routine) - Closed Specialty Diagnoses / Procedures Referred By Contana maria t Referred To Contact Dermatology Diagnoses multiple moles Jack Craft MD [facility] [address] [place] [address] Pro Son MD [address] [place] [address], [facility] [place] [address] Referral ID Status Reason Start Date Expiration Date V isits Requested Visits Authorized [id number] Closed Connection Center PCP Updated and/or Approved 08/26/2015 08/25/2016 1 1 Encounter Details Date Type Department Care Team (Late st Contact Info) Description 01/01/2016 11:15 AM EDT Office Visit Dermatology at [address] [address] Pro Son MD [address] [place] [address], [facility] [place] [address] Nevus; Actinic keratosis Social History Tobacco Use Types Packs/Day Years Used Date Smoking Tobacco: Passive Smo ke Exposure - Never Smoker Cigars Sex and Gender Information Value Date Recorded Sex Assigned at Not on file Gender Identity Not on file Sexual Orientation Not on file documented as of this encounter Progress Notes * Pro Son MD - 01/01/2016 11:15 AM EDT PROBLEM: Skin checkup. Harry is a 50-year-old who is referred today by Dr. Jack Craft for general skin checkup today. Apparently his father in later years was seen in [facility] and had numerous moles removed sequentially over time by a specialty sales consultant there. He is gone now and so Harry is not really sure what the indication for that was. He wonders what he is going to need to have his moles removed also. Physical examination reveals a pleasant 50-year-old who has benign-appearing melanocytic nevi present in the hair bearing scalp, on the chest and back, hands, arms, forearms, thighs and calves. He has a single actinic keratosis on the right nasal sidewall that he states he has had treated in the past with liquid nitrogen. It keeps coming back. There is no evidence of any malignant or other pre-malignant lesions today. ASSESSMENT AND PLAN: 1. Benign melanocytic nevi. A. Patient reassured about benign nevi. B. Would not recommend excision or removal of any of them. C. Do not feel the patient requires annual visits given the benign appearance of his nevi today. 2. Actinic keratosis right nasal sidewall. A. LN2 x2 applied to single site. B. Return to clinic p.r.n. CC: Jack Craft MD. documented in this encounter Plan of Treatment Not on file documented as of this encounter Visit Diagnoses Diagnosis Nevus Benign neoplasm of skin, site unspecified Actinic keratosis documented in this encounter Care Teams Coal Pipeline Operator Relationship Specialty Start Date End Date Jack Craft MD [facility] [address] [place] [address] PCP - General 01/21/15 09/19/16 documented as of this encounter
--- OUTSIDE RECORDS SUMMARY | 2024-03-29 16:52 | XMS_ITS | Encounter Summary ---
Author Organization [facility] Address [facility] [place] [address] Care Team Providers Care Mailmaster Name Role Phone Jack Craft MD Primary Care Provider [phone] Encounter Details Date Type Department Care Team (Latest Contact Info) Description 01/21/2015 9:00 AM EDT Procedure visit Urology at [facility] [place] [address] Randall Olivera MD [facility] [place] [address] Gross hematuria (Primary Dx) Discharge Disposition: Home Social History Tobacco Use Types Packs/Day Years Used Date Smoking Tobacco: Passive Smo ke Exposure - Never Smoker Cigars Sex and Gender Information Value Date Recorded Sex Assigned at Not on file Gender Identity Not on file Sexual Orientation Not on file documented as of this encounter Last Filed Vital Signs Vital Sign Reading Time Taken Comments Blood Pressure 145/98 01/21/2015 8:46 AM EDT Pulse 72 01/21/2015 8:46 AM EDT Temperature - - Respiratory Rate 16 01/21/2015 8:46 AM EDT Oxygen Saturation - - Inhaled Oxygen Concentration - - Weight 83.9 kg (185 lb) 01/21/2015 8:46 AM EDT Height 162.6 cm (5' 4) 01/21/2015 8:46 AM EDT Body Mass Index 31.76 01/21/2015 8:46 AM EDT documented in this encounter Patient Instructions * Patient Instructions* Keshia Mahajan LPN - 01/21/2015 9:26 AM EDT Instructions following Cystoscopy Activity: As tolerated by your comfort level. Fluids: You should increase your water today. Avoid coffee, tea and cola. You do not need to bsecpa14 ounces of water today. Urination: You will likely have a small amount of blood in your urine for the next several days. This is normal; however, if you are passing large amounts of blood clots or are unable to void please call our office at [phone] before 5PM or [phone] after hours. Please call if: * you have copious blood in your urine * fevers greater than 101.3 F * you are unable to void The number for questions is [phone] before 5 PM weekdays and [phone] after 5 PM and weekends. Follow-up: With Dr Maxwell as needed documented in this encounter Progress Notes * Randall Olivera MD - 01/21/2015 12:29 PM EDT Mr. Cano returned today to complete a hematuria workup. He had a CT urogram which was negative (see full report today) and a cystoscopy which was negative. I recommended that he have yearly urinalyses with his annual physical. Should he have gross hematuria again or should microhematuria persist for more than 3-5 years, please refer him back to urology. RANDALL OLIVERA MD 01/21/[address] scan report: EXAMINATION: CT Abdomen / Pelvis With and Without Contrast CLINICAL HISTORY: gross hematuria evaluation, CTU please, thanks! TECHNIQUE: Helical CT of the abdomen and pelvis was performed prior to and following intravenous administration of 110 ml of Omnipaque 350. 3D VR and MIP images were reformatted on a separate workstation and reviewed as part of this study. COMPARISON: 12/17/2014 from outside hospital FINDINGS: Right kidney and ureter: The right ureteral calculus seen on the comparison study is no longer present. The degree of collecting system dilatation has improved. No renal lesions. No filling defect in the collecting system, which was imaged in its entirety. Left kidney and ureter: No calculi. No hydronephrosis or hydroureter. No renal lesions. No filling defect in [...] Mild degenerative changes noted in the spine. IMPRESSION IMPRESSION: 1. The right ureteral calculus seen on the prior study is no longer present, and the hydronephrosis has resolved. 2. No renal mass or urothelial filling defect/neoplasm visualized. documented in this encounter Procedure Notes * Randall Olivera MD - 01/21/2015 12:30 PM EDTAssociated Order(s): CYSTOSCOPY Pre-Procedure Diagnose(s): Gross hematuria Cystoscopy Preoperative Diagnosis: Encounter Diagnoses Name Primary? Gross hematuria Yes Postoperative Diagnosis: Same Procedure/Operation Performed: Cystoscopy Attending Surgeon: RANDALL OLIVERA MD Resident Surgeon: Kimmy Anesthesia: Xylocaine jelly Pre-Medication: Cipro po Preparation: None Indications for Procedure: This 49 y.o. male presents with the diagnosis / diagnoses listed above. The procedure was described in detail to the patient. The risks, benefits, and alternatives were thoroughly discussed. The patient wished to proceed with the recommended procedure. Verbal informed consent was obtained and is documented in the chart. Time Out: A time-out was completed verifying correct patient, procedure, site, positioning, and implant(s) and/or special equipment prior to beginning this procedure. Procedure and Findings: The patient was prepped and draped in the usual manner in the supine frog legged position. Cystoscopy was carried out using the flexible cystoscope. The urethra was normal. The prostatic urethra was normal. The bladder mucosa was normal. The ureteral orifices were normal. Additional findings: None Estimated Blood Loss: None Complications: None Impression: Normal bladder. documented in this encounter Plan of Treatment Not on file documented as of this encounter Procedures Procedure Name Priority Date/Time Associated Diagnosis Comments CYSTOSCOPY Routine 01/21/2015 12:31 PM EDT Gross hematuria documented in this encounter Results * Cystoscopy - Today (01/21/2015 12:31 PM EDT) Narrative Randall Olivera MD - 01/21/2015 12:31 PM EDT Randall Olivera MD ? 01/21/2015 12:31 PM Cystoscopy Preoperative Diagnosis: Encounter Diagnoses Name Primary? ? ? Gross hematuria Yes Postoperative Diagnosis: Same Procedure/Operation Performed: Cystoscopy Attending Surgeon: RANDALL OLIVERA MD Resident Surgeon: None Anesthesia: Xylocaine jelly Pre-Medication: Cipro po Preparation: None Indications for Procedure: This 49 y.o. male presents with the diagnosis / diagnoses listed above. The procedure was described in detail to the patient. ??The risks, benefits, and alternatives were thoroughly discussed. The patient wished to proceed with the recommended procedure. ??Verbal informed consent was obtained and is documented in the chart. Time Out: A time-out was completed verifying correct patient, procedure, site, positioning, and implant(s) and/or special equipment prior to beginning this procedure. Procedure and Findings: The patient was prepped and draped in the usual manner in the supine frog legged position. Cystoscopy was carried out using the flexible cystoscope. The urethra was normal. The prostatic urethra was normal. The bladder mucosa was normal. The ureteral orifices were normal. Additional findings: None Estimated Blood Loss: None Complications: None Impression: Normal bladder. Randall Olivera MD PROCEDURE ORDER MARGI documented in this encounter Visit Diagnoses Diagnosis Gross hematuria- Primary documented in this encounter Care Teams Mailmaster Relationship Specialty Start Date End Date Jack Craft MD [facility] [address] [place] [address] PCP - General 01/21/15 09/19/16 documented as of this encounter
--- OUTSIDE RECORDS SUMMARY | 2024-03-29 16:52 | XMS_ITS | Encounter Summary ---
Author Organization [facility] Address [facility] [place] [address] Care Team Providers Care Insurance Analyst Name Role Phone Cha Miguel MD Primary Care Provider [phone] Encounter Details Date Type Department Care Team (Latest Contact Info) Description 06/18/2012 8:09 AM EST - 06/18/2012 11:59 PM EST [place] [id number] CLINIC, Eliza Trivedi MD [facility] [place] [address] Pulmonary emboli Discharge Disposition: Home Social History Tobacco Use [...] Procedure Name Priority Date/Time Associated Diagnosis Comments SAVE PLASMA FOR FUTURE COAG STUDIES Routine 06/18/2012 8:15 AM EST Pulmonary emboli PROTEIN S ACTIVITY Routine 06/18/2012 8: 15 AM EST Pulmonary emboli D-DIMER, QUANTITATIVE Routine 06/18/2012 8:15 AM EST Pulmonary emboli PROTEIN C ACTIVITY Routine 06/18/2012 8: 15 AM EST Pulmonary emboli documented in this encounter Results * D-Dimer, Quantitative (06/18/2012 8:15 AM EST) [facility] D-Dimer 296 0 - 500 FEU ng/ml [facility] Comment: The D-Dimer assay is used to aid in the diagnosis of deep vein thrombosis and pulmonary embolism. A normal D-Dimer result (less than 500 FEU ng/ml) has a negative predictive value of approximately 95% for the exclusion of acute PE and DVT when there is low to moderate pretest probability. Blood specimen (specimen) 06/18/2012 8:15 AM EST 06/18/2012 8:34 AM EST Narrative Resulting Agency Comment Spec In Lab Eliza Alarcon MD HEMATOLOGY ORDERAB LES [facility] * Save Plasma for future Coag Studies (06/18/2012 8:15 AM EST) [facility] Save Plasma Sample saved in Lab [facility] Blood specimen (specimen) 06/18/2012 8:15 AM EST 06/18/2012 8:34 AM EST Eliza Alarcon MD HEMATOLOGY ORDERAB LES [facility] * (ABNORMAL) Protein C activity (06/18/2012 8:15 AM EST) [facility] Protein C Activity 196(H) 67 - 156 % activity [facility] Blood specimen (specimen) 06/18/2012 8:15 AM EST 06/18/2012 8:34 AM EST Narrative Resulting Agency Comment Spec In Lab Eliza Alarcon MD HEMATOLOGY ORDERAB LES [facility] * Protein S Activity (06/18/2012 8:15 AM EST) [facility] Protein S Act 103 66 - 139 % activity [facility] Blood specimen (specimen) 06/18/2012 8:15 AM EST 06/18/2012 8:34 AM EST Narrative Resulting Agency Comment Spec In Lab Eliza Alarcon MD HEMATOLOGY ORDERAB LES [facility] documented in this encounter Visit Diagnoses Diagnosis Pulmonary emboli Other pulmonary embolism and infarction documented in this encounter Care Teams Insurance Analyst Relationship Specialty Start Date End Date Cha Miguel MD [address] [place] [address] PCP - General 05/21/12 01/20/15 documented as of this encounter
--- OUTSIDE RECORDS SUMMARY | 2024-03-29 16:52 | XMS_ITS | Encounter Summary ---
Author Organization [facility] Address [facility] [place] [address] Care Team Providers Care Agriscience Instructor Name Role Phone Jack Craft MD Primary Care Provider [phone] Encounter Details Date Type Department Care Team (Latest Contact Info) Description 01/21/2015 6:56 AM EDT - 01/21/2015 11:59 PM EDT Hospital Encounter CT Scan at [facility] [place] [id number] Gross hematuria Social History Tobacco Use Types Packs/Day Years Used Date Smoking Tobacco: Passive Smo ke Exposure - Never Smoker Cigars Sex and Gender Information Value Date Recorded Sex Assigned at Not on file Gender Identity Not on file Sexual Orientation Not on file documented as of this encounter Medications at Time of Discharge Medication Sig Dispensed Refills Start Date End Date rivaroxaban 20 mg Tablet Take 20 mg by mouth daily. glyBURIDE (DIABETA) 2.5 mg Tablet Take 2.5 mg by mouth daily (with breakfast). atorvastatin (LIPITOR) 10 mg Tablet Take 10 mg by mouth daily. metFORMIN (GLUCOPHAGE) 500 mg Tablet Take 500 mg by mouth 2 times daily (with meals). documented as of this encounter Miscellaneous Notes * Ancillary Services Notes - Nadeen Calderon - 01/21/2015 8:14 AM EDT You had a CT Scan on @ Per [facility] Policy it is important that you stop taking your Metformin (Diabetic Medication) for 2 days following the injection of IV iodinated contrast. You can start taking yourMetformin on . If you have any questions or concerns, contact your primary care provider. Also drink plenty of water following your CT Scan to help clear the IV Iodinated contrast out of your body. Thank You, [facility] CT Scan Dept You had a CT Scan on 01-21 @ 0800 Per [facility] Policy it is important that you stop taking your Metformin (Diabetic Medication) for 2 days following the injection of IV iodinated contrast. You can start taking your Metformin on 01-23 afte 8 am . If you have any questions or concerns, contact your primarycare provider. Also drink plenty of water following your CT Scan to help clear the IV Iodinated contrast out of your body. Thank You, [facility] CT Scan Dept documented in this encounter Plan of Treatment Not on file documented as of this encounter Procedures Procedure Name Priority Date/Time Associated Diagnosis Comments CT ABD/PELVIS W OR WO CONTRAST Routine 01/21/2015 8:39 AM EDT Gross hematuria documented in this encounter Results * CT [...] renal mass or urothelial filling defect/neoplasm visualized. Randall Olivera MD IMG CT ORDERABLES documented in this encounter Visit Diagnoses Diagnosis Gross hematuria documented in this encounter Administered Medications Inactive Administered Medications - up to 3 most recent administrations Medication Order MAR Action Action Date Dose Rate Site iohexol (OMNIPAQUE) 350 mg/mL solution 38,500 mg 38,500 mg (110 mL), Intravenous, ONCE PRN, 1 dose, Starting on Mon01/21/15 at 0813, Until Mon01/21/15 at 0814, Per Protocol, Routine Given 01/21/2015 8:14 AM EDT 38,500 mg documented in this encounter Care Teams Agriscience Instructor Relationship Specialty Start Date End Date Jack Craft MD [facility] [address] [place] [address] PCP - General 01/21/15 09/19/16 documented as of this encounter
--- OUTSIDE RECORDS SUMMARY | 2024-03-29 16:52 | XMS_ITS | Clinical Summary ---
Author Organization [facility] Address [facility] [place] [address] Care Team Providers Care Rouge Sifter Name Role Phone Ajay Monteiro MD Primary Care Provider [phone] Allergies No known active allergies Medications Medication Sig Dispensed Refills Start Date End Date Status atorvastatin (LIPITOR) 10 mg Tablet Take 10 mg by mouth daily. Active metFORMIN (GLUCOPHAGE) 500 mg Tablet Take 500 mg by mouth 2 times daily (with meals). Active glyBURIDE (DIABETA) 2.5 mg Tablet Take 2.5 mg by mouth daily (with breakfast). Active rivaroxaban 20 mg Tablet Take 20 mg by mouth daily. Active colchicine (COLCRYS) 0.6 mg Tablet take 2 tablets by mouth ONCE,THEN TAKE 1 TWICE DAILY NEEDED 0 11/16/2015 Active Active Problems Problem Noted Date Diagnosed Date Nevus 01/01/2016 Actinic keratosis 01/01/2016 Pulmonary embolism 05/22/2012 Social History Tobacco Use Types Packs/Day Years Used Date Smoking Tobacco: Passive Smo ke Exposure - Never Smoker Cigars Sex and Gender Information Value Date Recorded Sex Assigned at Not on file Gender Identity Not on file Sexual Orientation Not on file Last Filed Vital Signs Vital Sign Reading Time Taken Comments Blood Pressure 145/98 01/21/2015 8:46 AM EDT Pulse 72 01/21/2015 8:46 AM EDT Temperature - - Respiratory Rate 16 01/21/2015 8:46 AM EDT Oxygen Saturation 97% 01/07/2015 9:13 AM EDT Inhaled Oxygen Concentration - - Weight 83.9 kg (185 lb) 01/21/2015 8:46 AM EDT Height 162.6 cm (5' 4) 01/21/2015 8:46 AM EDT Body Mass Index 31.76 01/21/2015 8:46 AM EDT Plan of Treatment Health Maintenance Due Date Last Done Comments CT Colonography 1965 Colonoscopy 1965 Colorectal Cancer Screening 1965 FIT DNA 1965 FIT 1965 Sigmoidoscopy (10 year) with FIT yearly 1965 Sigmoidoscopy 1965 HIV screen 08/03/1983 Hepatitis C Screening 08/03/1983 Lipid Screening 08/03/1983 Hepatitis B vaccine (0-59 yrs) (1) 1984 Tetanus/Diphtheria/Pertussis Vaccines (1 - Tdap) 08/02 Zoster vaccine (1 of 2) 08/03/2015 Advance Directive 2020 Covid-19 Vaccine (1 - season) 2024 Influenza (Flu) vaccine (1 o f 1 - Influenza standard series) 01/07/2024 Care Teams Rouge Sifter Relationship Specialty Start Date End Date Ajay Monteiro MD PCP - General 09/20/16
--- OUTSIDE RECORDS SUMMARY | 2024-03-29 16:52 | XMS_ITS | Encounter Summary ---
Author Organization [facility] Address [address] [place] [address] Care Team Providers Care Learning Manager Name Role Phone Unavailable Primary Care Provider Unavailabl e Encounter Details Date Type Department Care Team (Late st Contact Info) Description 07/13/2006 Results Only [facility] [address] [place] [address] Livia Garcia MD [address] [place] [address] Social History Tobacco Use Types [...] Date/Time Associated Diagnosis Comments SURGICAL PATHOLOGY Routine 07/13/2006 0:00 EST documented in this encounter Results * SURGICAL PATHOLOGY (07/13/2006 0:00 EST) Pathology Report: SURGICAL PATHOLOGY REPORT Reports generated via electronic interface contain original data; however they are lacking the format of the original report. Caution should be taken when reading/interpreting unformatted reports. Name: ? HARRY AZEVEDO ? Accession #: ? [id number] ? : ? 1965 (Age: 40) ??M ? Collect Date: ? 07/13/2006 ? Location: ? [facility] ? Receive Date: ? 07/14/2006 ? Provider: LIVIA GARCIA MD Copy to: KISHOR MA MD ? Final Pathologic Diagnosis: ? Skin of nose, right, shave biopsy: - Actinic keratosis. Microscopic Description: ? The stratum corneum is thickened by orthohyperkeratosis with foci of parakeratosis. ??The epidermis is focally thickened with elongate and bulbous rete ridges. ??The basal keratinocytes show a variable degree of atypia including nuclear enlargement, dispolarity, and hyperchromasia. ??The dermis is marked by solar elastosis, vascular ectasia and a lymphohistiocytic infiltrate. ??(Dr. Rodriguez)/[facility] Document reviewed and electronically signed by: Rosenda Rodriguez MD Report ??Date: 07/18/2006 06:50 By the signature above, the attending physician certifies that he/she has personally conducted a gross and/or microscopic examination of the described specimens and rendered or confirmed the above diagnosis. Specimen(s) Received: ? Shave biopsy R side of nose Clinical History: ? Not listed Gross Description: ? Received in formalin labelled Tomasi and lesion external R side of nose is a 0.4 x 0.2 x 0.1 cm shave biopsy of skin. ??The specimen is bisected and submitted entirely in one cassette. ??(Dr. Joy)/[facility] End of Report YUMIKO DALTON 07/13/2006 07/14/2006 15: 24 EST us Livia Garcia MD PATHOLOGY ORDERABLES Final Resul t YUMIKO DALTON [address] [place] [address] documented in this encounter Visit Diagnoses Not on filedocumented in this encounter
--- OUTSIDE RECORDS SUMMARY | 2024-03-29 16:52 | XMS_ITS | Encounter Summary ---
Author Organization [facility] [place] [address] Care Team Providers Care Health Care Liaison Name Role Phone Cha Miguel MD Primary Care Provider [phone] Encounter Details Date Type Department Care Team (Late st Contact Info) Description 12/17/2014 Orders Only Radiology [facility] [place] [id number] Cha Miguel MD [address] [place] [address] [facility] [address] [place] [address] Social History Tobacco Use Types Packs/Day Years [...] Procedure Name Priority Date/Time Associated Diagnosis Comments FILM LIBRARY STORAGE ONLY CT ABDOMEN Routine 12/17/2014 10:08 AM EDT documented in this encounter Results * Film Library- Storage only CT Abdomen (12/17/2014 10:08 AM EDT) Anatomical Region Laterality Modality Abdomen Other 12/17/2014 10:0 8 AM EDT Narrative 12/19/2014 10:13 AM EDT This is a Non-reportable exam Procedure Note SANDRA, UNSIGNED REPORT - 12/19/2014 This is a Non-reportable exam Cha Miguel MD [facility] FILM LIBRARY ORD ERABLES documented in this encounter Visit Diagnoses Not on filedocumented in this encounter Care Teams Health Care Liaison Relationship Specialty Start Date End Date Cha Miguel MD [facility] [address] [facility] [address] [place] [address] PCP - General 05/21/12 01/20/15 documented as of this encounter
--- OUTSIDE RECORDS SUMMARY | 2024-03-29 16:52 | XMS_ITS | Encounter Summary ---
Author Organization [facility] Address [facility] [place] [address] Care Team Providers Care Manager Cardiovascular Name Role Phone Cha Miguel MD Primary Care Provider [phone] Encounter Details Date Type Department Care Team (Latest Contact Info) Description 05/21/2012 2:32 PM EST - 05/21/2012 11:59 PM EST [place] [phone] Eliza Alarcon MD [facility] [address] [place] [address] Discharge Disposition: Home Social History Tobacco Use Types Packs/Day Years Used Date Smoking Tobacco: Passive Smo ke Exposure - Never Smoker Cigars Sex and Gender Information Value Date Recorded Sex Assigned at Not on file Gender Identity Not on file Sexual Orientation Not on file documented as of this encounter Medications at Time of Discharge Medication Sig Dispensed Refills Start Date End Date warfarin (COUMADIN) 2.5 mg tablet Take 2.5 mg by mouth daily. 06/18/2012 documented as of this encounter Plan of Treatment Not on file documented as of this encounter Procedures Procedure Name Priority Date/Time Associated Diagnosis Comments THROMBOSIS SCREEN REPORT Routine 05/21/2012 2:33 PM EST documented in this encounter Results * Thrombosis Screen Report (05/21/2012 2:33 PM EST) Thrombosis Screen Report ? [facility] ? Provider: ?? Agnes DURHAM, ?Pt. Name: ?? PORSHA CANO ?Eliza L. ? Acc #: ?[id number] ? Pt. ? Col Date: ?? 05/21/2012 ? /Sex: ?1965,(46 years),Male ? Rec Date: ?? 05/21/2012 ? LOC: ?3K ? THROMBOSIS SCREEN REPORT ? ---Clinical Information--- ? 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 ? ---Result--- ? TEST ?(REFERENCE RANGE) ?RESULT ? Platelet count ?(145,000-370,000/u L) ?225,000/cumm ? PT ?(11.9-14.7) ? 23.0 sec ? PTT ? (25-35) ? 35 sec ? Fibrinogen ?(220-480) ? 299 mg/dl ? Thrombin time ? (15-21) ? 18 sec ? APC resistance, ratio ? (>2.00) ? 2.56 ? Antithrombin ?(80-120%) ? 118% ? Protein C* ?(67-156%) ? Not performed ? Protein S* ?(M:66-139%)(F:65-1 23%) ??Not performed ? Lupus anticoagulant ? (negative) ?Negative ? Anticardiolipin antibodies ?(IgG <23 GPL) ? <23 GPL ? Anticardiolipin antibodies ?(IgM <11 MPL) ? <11 MPL ? Imay-1-widgucwyinwd- 1 antibodies ??(IgG <21 units) ? IgG <21 units ? Emyr-7-narqfjethaxk- 1 antibodies ??(IgM <21 units) ? IgM <21 units ? Homocysteine, random, plasma ?(<12 umol/L) ?7 umol/L ? Factor V Leiden Mutation ?(normal) ?Not performed ? Prothrombin (96026 G->A) mutation (normal) ?Negative ? * Functional assay for free Protein S and Protein C ? ---Interpretation--- ? 1. ?? Prolonged PT due to treatment with warfarin ? 2. ?? No evidence for the presence of common hematologic risk factors ? associated with hereditary or acquired thrombophilia (see ? comment). ? 05/29/12 ? DLO ? 05/29/12 Verified by: ? Agnes DURHAM, Eliza Whitaker ? Hematopathologist ? (Electronic Signature) ? The attending pathologist whose signature appears on this report has ? reviewed all diagnostic slides and has edited the gross and/or ? microscopic portion of the report in rendering the final pathologic ? diagnosis. ? [facility] ? Provider: ?? Agnes DURHAM, ?Pt. Name: ?? PORSHA CANO ?Eliza Whitaker ? Acc #: ?[id number] ? Pt. ? Col Date: ?? 05/21/2012 ? /Sex: ?1965,(46 years),Male ? Rec Date: ?? 05/21/2012 ? LOC: ?3K ? THROMBOSIS SCREEN REPORT ? ---Comment--- ? The screening test for activated protein C resistance is negative, thus ? there is no evidence for the presence of factor V Leiden. ??The DNA assay ? for factor V Leiden is therefore not indicated and was not performed as ? part of this study. The patient is currently being treated with warfarin ? which inhibits synthesis of protein C and protein S, thus levels of these ? proteins were not measured as part of this study. ??If congenital protein C ? or protein S deficiency is suspected, suggest testing for these entities at ? least 3-4 weeks after discontinuing warfarin if clinically appropriate. ? Although the thrombophilia screening panel is negative, this individual may ? have additional as yet undefined genetic or environmental risk factors for ? venous thrombosis. Consultation with a thrombosis specialist or genetic ? counselor may be helpful for further characterizing specific thrombosis ? risk for this patient, if clinically appropriate. AMIE GARCESSTACIE 05/21/2012 2:33 PM EST Eliza Alarcon MD PATHOLOGY/CYTOLOGY ORDERABLES Performing Organization Address City/State/[facility] Co tn Phone Number AMIE KIMBROUGH documented in this encounter Visit Diagnoses Not on filedocumented in this encounter Care Teams Manager Cardiovascular Relationship Specialty Start Date End Date Cha Miguel MD [address] [place] [address] PCP - General 05/21/12 01/20/15 documented as of this encounter
--- OUTSIDE RECORDS SUMMARY | 2024-03-29 16:52 | XMS_ITS | Encounter Summary ---
Author Organization [facility] Address [facility] [place] [address] Care Team Providers Care Venereal Disease Control Head Name Role Phone Cha Miguel MD Primary Care Provider [phone] Encounter Details Date Type Department Care Team (Late st Contact Info) Description 06/18/2012 8:30 AM EST Office Visit Vascular Surgery at [facility] [place] [address] Leyla David RVT Pulmonary emboli; Leg swelling Social History Tobacco Use Types Packs/Day Years [...] Procedure Name Priority Date/Time Associated Diagnosis Comments VENOUS VALVULAR INCOMP, BILAT LEGS Routine 06/18/2012 8:23 AM EST Pulmonary emboli Leg swelling documented in this encounter Results * Venous Valvular Incomp, Bilat Legs (06/18/2012 8:23 AM EST) VB Text Report Department: Vascular Surgery Lab Patient: [id number] (JOLLYHARRY) CPT Code: 13602 ICD-9: 799.02; 729.81 Referring Physician: ELIZA ALARCON Indication: ?? Bilateral leg swelling and history of PE in January 2012; Is there venous valve incompetence/ref lux? ICD9 Diagnosis Code: 729.81 Findings: Right ? Reflux?Patency? Common Femoral Vein ? Competent ??Yes Femoral Vein Thigh ?Competent ??Yes Popliteal ? Reflux ? Yes Posterior Tibial Vein ? Competent ??Yes Great Saphenous Vein, Near SFJ ?Competent ??Yes Great Saphenous, Upper Thigh ?Competent ??Yes Great Saphenous Vein, Mid Thigh ?? Competent ??Yes Great Saphenous Vein, ??Knee ? Competent ??Yes Great Saphenous Vein, Below Knee ??Competent ??Yes Short Saphenous, Below Knee ? Competent ??Yes Left ?Reflux?Patency? Common Femoral Vein ? Competent ??Yes Femoral Vein Thigh ?Competent ??Yes Popliteal ? Competent ??Yes Posterior Tibial Vein ? Competent ??Yes Great Saphenous Vein, Near SFJ ?Competent ??Yes Great Saphenous, Upper Thigh ?Competent ??Yes Great Saphenous Vein, Mid Thigh ?? Competent ??Yes Great Saphenous Vein, ??Knee ? Competent ??Yes Great Saphenous Vein, Below Knee ??Competent ??Yes Short Saphenous, Below Knee ? Competent ??Yes Interpretation: RIGHT: Calf vein DVT: One peroneal vein is thrombosed; echogenic, not dilated by B-mode, may be chronic (no previous study from our lab for comparison). Deep vein valvular incompetence >5 seconds noted in the popliteal vein. No significant (>0.5 second) superficial venous valvular incompetence . No evidence of femoro-popliteal DVT or superficial vein thrombus. LEFT: No significant (<0.5 second) deep or superficial venous valvular incompetence. No evidence of deep or superficial vein thrombus. Comparison: No previous study in our vascular lab database for comparison. Signed by AUGUSTA EMMANUEL on 2012-06-19 11:16:48 AM VASCUBASE VB Text Report End of Report [facility] 06/18/2012 8:23 AM EST Eliza Alarcon MD VASCULAR ORDERABLE S [facility] documented in this encounter Visit Diagnoses Diagnosis Pulmonary emboli Other pulmonary embolism and infarction Leg swelling Swelling of limb documented in this encounter Care Teams Venereal Disease Control Head Relationship Specialty Start Date End Date Cha Miguel MD [address] [place] [address] PCP - General 05/21/12 01/20/15 documented as of this encounter
--- OUTSIDE RECORDS SUMMARY | 2024-03-29 16:52 | XMS_ITS | Encounter Summary ---
Author Organization [facility] Address [facility] [place] [address] Care Team Providers Care Audiovisual Production Specialist Name Role Phone Cha Ma MD Primary Care Provider Reason for Visit * Reason Comments Other left calf edema Encounter Details Date Type Department Care Team (Late st Contact Info) Description 02/17/2014 2:30 PM EDT Office [place] [address] Gonzalo Bocanegra MD [facility] [place] [address] Leg swelling (Primary Dx) Discharge Disposition: Home Social History [...] Sign Reading Time Taken Comments Blood Pressure 132/78 02/17/2014 2:28 PM EDT Pulse 73 02/17/2014 2:28 PM EDT Temperature - - Respiratory Rate 18 02/17/2014 2:28 PM EDT Oxygen Saturation - - Inhaled Oxygen Concentration - - Weight 83.9 kg (185 lb) 02/17/2014 2:28 PM EDT Height 162.6 cm (5' 4) 02/17/2014 2:28 PM EDT Body Mass Index 31.76 02/17/2014 2:28 PM EDT documented in this encounter Patient Instructions * Patient Instructions* Moses Samaniego MD - 02/17/2014 3:35 PM EDT -Wear compression stockings daily -Elevate feet when not standing -Call us if you would like another appointment to be seen or if you have any further questions documented in this encounter Progress Notes * Moses Samaniego MD - 02/17/2014 3:18 PM EDT Vascular Surgery Office Consultation Note Reason for Consult: We are seeing Harry Cano at the request of Dr. CHA MA MD in consultation for left lower extremity edema. I have reviewed the available records, interviewed and examined the patient. History of Present Illness: Harry Cano is a 48 y.o. male who presents for evaluation of left > right lower extremity edema. He states that he has had issues with ankle and calf swelling since 1996 and that it has always been worse on the left. The swelling is minimal in the morning and worse at the end of the day. He isnot on his feet much at his job but does try to walk around two miles per day, and this seems to exacerbate the edema. He notices that the swelling tends to fluctuate with his weight, and seems worseduring periods when he is relatively deconditioned and has gained weight. He denies any chante pain but does not a feeling of heaviness associated with the swelling. He has tried non-fitted compression stockings and they do help a bit. He denies claudication or rest pain. He denies venous ulcerationbut does have a scab over his 1st metatarsal that he says formed from scratching. He does have a history of VTE: in 2011 he was diagnosed with an unprovoked PE. At that time, no definitive LE source was found but a consultation note from Dr. Alarcon in June of 2012 does make note of old left peroneal thrombus. He was treated with coumadin for five months at this time and then it was discontinued in favor of ASA once a hypercoagulable workup returned negative. Of note, a venous reflux study at this time was also negative with the exception of some reflux in the right popliteal vein. However, this past December, he had an episode of acute swelling, pain, and warmth of his left foot and presented to an outside Emergency Department where a DVT study again revealed left peroneal thrombus,so coumadin was re-initiated and he remains on it now. Atherosclerotic Risk Factors: (y) DM-on metformin (n) HTN (y) HLD (n) Smoking Other Vascular Risk Factors: (n) CAD: Previous CT, angina (n) CHF (n) Arrhythmia (n) COPD Other Past Medical History: 1. Venous thromboembolism (bilateral PE), 01/2012, negative hypercoagulable workup, treated with 5 months of anticoagulation, now back on coumadin (see above) 2. Hyperlipidemia 3. Type II diabetes 4. Gout out 5. Hx of Wells's palsy Past Surgical History: 1. Tonsillectomy, 1975 2. Removal of foreign object from left foot, 2001 Functional Status/Social History: History Social History ??? Marital Status: Spouse Name: N/A Number of Children: N/A ??? Years of Education: N/A Occupational History ??? Not on file. Social History Main Topics ??? Smoking status: Passive Smoke Exposure - Never Smoker -- 10 years Types: Cigars ??? Smokeless tobacco: Not on file ??? Alcohol Use: Not on file ??? Drug Use: Not on file ??? Sexually Active: Not on file Other Topics Concern ??? Not on file Social History Narrative ??? No narrative on file Home Meds: Current Outpatient Rx Name Route Sig Dispense Refill ??? WARFARIN 5 MG TABLET Oral Take 5 mg by mouth daily. 5 times weekly ??? ATORVASTATIN 10 MG TABLET Oral Take 10 mg by mouth daily. ??? METFORMIN 500 MG TABLET Oral Take 500 mg by mouth 2 times daily (with meals). ROS: Physical Exam: General - NAD, appears stated age Ear, Nose, Throat - No masses, No lesions Cardiac - RRR, no murmurs Lungs - Clear Abd - Soft, NT, ND, No palpable pulsatile masses Extremities - Left lower extremity with 2+ pitting edema to the knee, no lipodermatosclerosis. No varicosities or reticular veins. Small scab over lateral aspect of 1st metatarsal, healing, RLE with trace edema to the ankle, no lipodermatosclerosis or tissue loss. No varicosities or reticular veins. Neuro - Alert and Oriented, Motor Sensory grossly intact Skin - No prominent markings or lesions Vascular Exam: R L Carotid 2/2 bruit (-) 2/2 bruit (-) Radial 2/2 2/2 Femoral 2/2 2/2 Popliteal 2/2 2/2 DP 2/2 2/2 PT 2/2 2/2 Labs: None Studies: DVT Study LEFT: The paired peroneal veins has non-occlusive [...] deep venous non-occlusive thrombus (Calf, peroneal veins). Assessment and Plan: Mr. Cano is a 48 year-old male with a history of L>R lower extremity edema. He has a history of unprovoked pulmonary embolus and left lower extremity peroneal vein thrombus, but his history of edema predates this. Reflux study in 2013 shows no reflux on the left. The etiology of his edema is likely multifactorial. It was reviewed with him that the edema, although a nuisance, is not life-threa tening. At this time, we recommend treatment with graduated compression stockings and elevation. Ifhis symptoms worsen to the point that they are affecting his ability to perform his activities of daily living, we would be happy to see him back and consider left iliac venography to assess for iliac vein stenosis. At this point, we will see him back on an as needed basis. It was a pleasure to seeMr. Rachael today. Please do not hesitate to call with any questions or concerns. I have seen and examined this patient. I have little to add to his H&P. Pt. was reassured by a discussion of the etiology and prognosis of his LLE unilateral ankle swellin. documented in this encounter Plan of Treatment Not on file documented as of this encounter Visit Diagnoses Diagnosis Leg swelling- Primary Swelling of limb documented in this encounter Care Teams Audiovisual Production Specialist Relationship Specialty Start Date End Date Cha Ma MD [address] [place] [address] PCP - General 05/21/12 01/20/15 documented as of this encounter
--- OUTSIDE RECORDS SUMMARY | 2024-03-29 16:52 | XMS_ITS | Encounter Summary ---
Author Organization [facility] Address [address] [place] [address] Care Team Providers Care Product Lead Name Role Phone Cha Miguel MD Primary Care Provider [phone] Encounter Details Date Type Department Care Team (Late st Contact Info) Description 11/03/2014 Results Only [facility] [phone] Deep Bloom MD Critical access hospital[address] [facility] [address] [place], [place] [id number] Social History Tobacco Use Types Packs/Day Years [...] Date/Time Associated Diagnosis Comments SURGICAL PATHOLOGY Routine 11/03/2014 18 :55 EDT documented in this encounter Results * SURGICAL PATHOLOGY (11/03/2014 18:55 EDT) Pathology Report: SURGICAL PATHOLOGY REPORT Reports generated via electronic interface contain original data; however they are lacking the format of the original report. Caution should be taken when reading/interpret ing unformatted reports. Name: ? HARRY AZEVEDO ? Accession #: ? [id number] ? : ? 1965 (Age: 49) ??M ? Collect Date: ? 11/03/2014 ? Location: ? [facility] ? Receive Date: ? 11/03/2014 ? Provider: DEEP BLOOM MD Copy to: SORAYA GOYAL MD ? Final Pathologic Diagnosis: COLON, ASCENDING, POLYP, BIOPSY: - Tubular adenoma. Document reviewed and electronically signed by: FRANCESCO WILCOX MD Report ??Date: 11/05/2014 12:03 By the signature above, the attending physician certifies that he/she has personally conducted a gross and/or microscopic examination of the described specimens and rendered or confirmed the above diagnosis. Specimen(s) Received: Ascending colon polyp Clinical History: R/O paraneoplastic syndrome; R/O carcinoid Gross Description: ? Received in formalin labelled with proper patient identification (initials T, P) and ascending colon polyp is a single bocanegra-brown tissue fragment (0.3 x 0.3 x 0.2 cm). Submitted intact in 1. Dr. Rebollar 11/04/2014 8:22 AM End of Report [facility] 11/03/2014 18:5 5 EDT 11/03/2014 18:55 EDT us Deep Bloom MD PATHOLOGY ORDERABLES Fin al Result [facility] [address] [place] [address] documented in this encounter Visit Diagnoses Not on filedocumented in this encounter Care Teams Product Lead Relationship Specialty Start Date End Date Cha Miguel MD [address] [place] [phone] PCP - General 01/27/11 11/04/14 documented as of this encounter
--- OUTSIDE RECORDS SUMMARY | 2024-03-29 16:52 | XMS_ITS | Encounter Summary ---
Author [facility] [place] [address] Care Team Providers Care Dice Table Person Name Role Phone Cha Miguel MD Primary Care Provider [phone] Encounter Details Date Type Department Care Team (Latest Contact Info) Description 02/17/2014 2:00 PM EDT Ancillary Appointment Vascular Surgery at [facility] [place] [address] [place], [place] Acute deep vein thrombosis of left lower extremity Social History Tobacco Use Types Packs/Day Years [...] Procedure Name Priority Date/Time Associated Diagnosis Comments DUPLEX FOR DVT, LEG, UNILAT Routine 02/17/2014 1:58 PM EDT Acute deep vein thrombosis of left lower extremity documented in this encounter Results * Duplex for DVT, Leg, Unilat (02/17/2014 1:58 PM EDT) VB Text Report Department: Vascular Surgery Lab Patient: [id number] (JOLLYHARRY) CPT Code: 04327 ICD-9: 451.19 Referring Physician: PORTIA BRADY Indication: [...] Acute deep vein thrombosis of left lower extremity Acute venous embolism and thrombosis of unspecified deep vessels of lower extremity documented in this encounter Care Teams Dice Table Person Relationship Specialty Start Date End Date Cha Miguel MD [address] [place] [address] PCP - General 05/21/12 01/20/15 documented as of this encounter
--- OUTSIDE RECORDS SUMMARY | 2024-03-29 16:52 | XMS_ITS | Encounter Summary ---
Author Organization [facility] Address [facility] [place] [address] Care Team Providers Care Forensic Accountant Name Role Phone Cha Miguel MD Primary Care Provider [phone] Reason for Visit * Reason Comments Follow-up Encounter Details Date Type Department Care Team (Late st Contact Info) Description 06/18/2012 12:45 PM EST Follow-Up Hematology [place] [address] Eliza Alarcon MD [facility] [address] HEMATOLOGY [place] [address] DVT (deep venous thrombosis) (Primary Dx); Pulmonary emboli Discharge Disposition: Home Social History [...] Sign Reading Time Taken Comments Blood Pressure 140/88 06/18/2012 12:37 PM EST Pulse 87 06/18/2012 12:37 PM EST Temperature - - Respiratory Rate 16 06/18/2012 12:37 PM EST Oxygen Saturation 97% 06/18/2012 12:37 PM EST Inhaled Oxygen Concentration - - Weight 84 kg (185 lb 3 oz) 06/18/2012 12:[address] Height 161.5 cm (5' 3.58) 06/18/2012 12:[address] Body Mass Index 32.21 06/18/2012 12:37 PM EST documented in this encounter Progress Notes * Eliza Alarcon MD - 06/18/2012 4:53 PM EST [facility] [address] Department of Medicine [place] [address] [facility] THROMBOSIS FOLLOW UP DATE OF VISIT 06/18/2012 Patient Harry Azevedo 1965 REFERRING PHYSICIAN Ajay Latif MD PRIMARY CARE PHYSICIAN Cha Miguel MD REASON FOR CONSULTATION Anticoagulation recommendations HISTORY OF THE PRESENT ILLNESS Harry Azevedo is a 46 y.o. man with a pulmonary embolism, who is seen in follow up to review the results of thrombophilia and noninvasive vascular testing and to finalize anticoagulation recommendations. Additional medical records were received from [facility] since I first saw him. Harry was enjoying hisusual state of health until the end of January when he came home in the evening after a meeting and noted bilateral flank/shoulder blade pain. He thought he had injured a muscle while splitting wood the previous weekend and thought it would go away with rest. As time went on in the evening he wasunable to find a comfortable position to sit, lay or stand and by 9 PM thought that he needed to get to the hospital right away. He crawled to his van and his drove him to [facility] where, his tells me, by about 3 AM he was diagnosed with pulmonary emboli, admitted and treated with heparin, then enoxaparin as a bridge to warfarin. The records from [facility] indicate that a CTPA showed bilateral lower lobe pulmonary emboli, a right basilar infiltrate and a small right pleural effusion. A CT scan of the abdomen and pelvis was unremarkable. An abdominal ultrasound showed fatty infiltration of the liver but was otherwise unremarkabe. A left leg duplex study showed no evidence for a DVT. No studies were performed on the right leg. This was Harry's first episode of VTE and there is no family history of VTE. 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 He can recall no potentially triggering factors for the VTE, including no recent travel, injury,surgery, trauma or hospitalization. In the office today Harry reports feeling well. His pulmonary symptoms have resolved and have not recurred. His legs continue to swell intermittently but he has no leg pain and he wears his compression stockings intermittently. He has been off warfarin for close to a month now and is taking low dosedaily aspirin. PAST MEDICAL HISTORY 1. Venous thromboembolism, 01/2012 as above Pulmonary embolism (?extent) Rx heparin, enoxaparin --> warfarin to 05/21/2012 2. Hyperlipidemia 3. Hx hyperglycemia 4. Hx gout 5. Hx Wells's palsy OPERATIVE PROCEDURES 1. Tonsillectomy, 1975 2. Removal of foreign object from left foot, 2001 MEDICATIONS Aspirin, 81 mg daily Echinacea ADVERSE DRUG REACTIONS Allergies as of 06/18/2012 ??? (No Known Allergies) FAMILY HISTORY Mother is alive and generally well at age 75. Has problems with her back. No VTE Father at age 64 of complications of thyroid cancer. No VTE. Received thromboprophylaxis afteran accident One sister, alive and well. No VTE SOCIAL HISTORY to Lisa x many years. They live in [facility] Originally from [place], worked in [employer]. 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 Three children, ranging in age from 15 to 21 Smokes occasional cigars 2-3 alcoholic beverages per week REVIEW OF SYSTEMS Fevers/chills/sweats No Recent infections No Unexplained weight loss No Headache/lightheadedness/syncope No Sinus pain/pressure No Oral sores/lesions/bleeding No Sore throat/dysphagia No Nosebleeds No Cough/SOB/chest pain/heart racing No Nausea/vomiting/dyspepsia No Abdominal pain No Diarrhea/constipation No Urinary pain, burning, incontinence No Hematuria No Penile discharge/bleeding No Skin rashes/ulcers No Back/joint pain/swelling No Leg swelling/pain/redness Intermittent leg swelling Bruising/petechiae/bleeding/melena No Sensory/motor No Polydipsia/polyuria/heat/cold intol No Lumps/bumps/swollen glands No Other Negative except as above PHYSICAL EXAMINATION BP 140/88 Pulse 87 Resp 16 Ht 161.5 cm (5' 3.58) Wt 84 kg (185 lb 3 oz) BMI 32.21 kg/m2 SpO2 97% GENERAL: Well-appearing, articulate white male. HEENT: Oropharynx clear. NECK: Supple CHEST/LUNGS: Normal respiratory effort. HEART: Regular rate. GASTROINTESTINAL: Abdomen benign. GENITOURINARY: Exam deferred. EXTREMITIES: No edema MUSCULOSKELETAL: Full ROM all joints. No acutely inflamed joints. SKIN: No ecchymoses. LYMPH: Not examined NEUROLOGIC: Alert, oriented. Speech clear, coherent. No focal deficits noted. PSYCHIATRIC: Appropriate affect, no apparent distress. LABORATORY STUDIES Results for HARRY AZEVEDO ( ) as of 06/19/2012 12:27 Ref. Range 05/21/2012 14:39 06/18/2012 08:15 Platelets Latest Range: 145-370 x10(3)/mcL 225 PT Latest Range: 11.9-14.7 sec 23.0 (H) INR Latest Range: 0.9-1.1 2.0 (H) PTT Latest Range: 25-35 sec 35 Fibrinogen Latest Range: 220-480 mg/dL 299 Thrombin Time Latest Range: 15-20 sec 18 D-Dimer, Quant Latest Range: 0-500 FEU ng/ml 296 Lupus Anticoag Latest Range: Neg Neg APC Resistance Latest Range: >=2.00 2.56 Antithrombin Latest Range: 80-120 % 118 Protein C Act Latest Range: 67-156 % activity 196 (H) Protein S Act Latest Range: 66-139 % activity 103 Homocyst Tot Latest Range: 5-12 mcmol/L 7 B2GPI IgG Latest Range: <=20 unit(s) <21 B2GPI IgM Latest Range: <=20 unit(s) <21 Cardiolipin IgG Latest Range: <=22 GPL unit(s) <23 Cardiolipin IgM Latest Range: <=10 MPL unit(s) <11 Prothrombin Mutation No range found Negative Interpretation: No evidence for hereditary or acquired thrombophilia RADIOGRAPHIC STUDIES Venous valve competence study, 06/18/2012 RIGHT: Calf vein DVT: One peroneal vein [...] deep or superficial venous valvular incompetence. No evidenceof deep or superficial vein thrombus. IMPRESSION Harry Azevedo is a 46 y.o. man with what appears to be an episode of unprovoked VTE manifesting as bilateral pulmonary emboli. He has no evidence for hereditary or acquired thrombophilia and has a low (i.e., low VTE risk) post-treatment D- dimer level. 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 He has some evidence for valve incompetence in the popliteal vein on the right, suggesting that the DVT may have involved that segment as well but has recanalized. PLAN/RECOMMENDATIONS I reviewed the results of thrombophilia testing with Harry today, though the results of the protein C and protein S levels had not returned before he left the office. I again reviewed the difference between an idiopathic VTE event and one that may have been precipitated by temporary risk factors (e.g., surgery, trauma, travel, hospitalization, immobilization) and discussed the additive nature of factors such as hereditary or acquired thrombophilia (e.g., factor V Leiden, PT [id number]), ABO blood type (non-O > O), dehydration, obesity, smoking varicose veins, diabetes, cancer, hormone use. I explained that the risk for developing a recurrent VTE is higher when the original event was idiopathic than when it was associated with identifiable risk factors thathave subsequently been eliminated. I explained that current ACCP recommendations (2012) for individuals with a first idiopathic VTE are for 3 months of anticoagulation with consideration for continuing indefinitely if the benefit in terms of risk reduction outweighs the risk for complications of long-term anticoagulation. Indefinite anticoagulation would be more strongly recommended in the event of a second VTE episode, especially an idiopathic one. In his case, given that his VTE event was idiopathic and his post-treatment D- dimer level is <500 FEU ng/mL, the risk for recurrence is estimated at 5-7% over the next two years off warfarin givenhis age and sex. Given this, it is reasonable for him to continue off warfarin. He should continue with low dose daily aspirin (81 mg) as there is some recent evidence from the WARFASA trial supporting its use for secondary VTE prevention after completion of an appropriate course of anticoagulationfor idiopathic VTE (Trixie et al., Aspirin for preventing the recurrence of venous thromboembolism. N Engl J Med. 2011September 28;366(21):1959-67). In this study the risk for recurrent VTE was reducedby about 40% in the aspirin-treated group compared to the placebo group. The aspirin dose used in this study was 100 mg daily, but there is no reason to expect that 81 mg, widely available over the counter in the [place] would be inferior. While this finding has yet to be confirmed, the data for primary prevention of arterial thrombosis are robust, leading to a net benefit. I reviewed his lower extremity venous valve competence study and reassured him that he has minimal valve incompetence. He has evidence for residual vein occlusion in the right leg from a previous DVT, which may have been the site of origin of his PE. I reassured him that RVO is not an indication for ongoing anticoagulation but that the current vascular study will serve as a new baseline going forward. Should he develop new leg symptoms and there is evidence of new or progressive DVT then anticoagulation would be indicated, otherwise, it would not be. He should continue use of his compression stockings to help with edema and for DVT prevention. Finally, I reviewed with him that though his risk for recurrent VTE is acceptably low to continue off anticoagulation, it is not zero and I reviewed signs and symptoms of VTE and reminded him to seekmedical attention expeditiously if these occur. I reviewed preventive strategies for DVT and PE including weight loss, maintaining a good activity level and avoiding dehydration. We discussed the fact that although he currently has no absolute indication for chronic ongoing anticoagulation, it would nevertheless be prudent to administer thromboprophylaxis around periods of high risk such as major surgery, trauma, immobilization or hospitalization. In the absence of a contraindication to anticoagulation, pharmacologic thromboprophylaxis is generally recommended (i.e., with heparin, low molecular weight heparin, vitamin K antagonists or one of the new oral agents) rather than insertion of a pr ophylactic IVC filter, which itself is prone to clotting and other complications. I let him know that I would be happy to help out with specific recommendations should the need arise and that, in particular, he should call our office in advance of any elective surgery so that we may provide a thromb oprophylaxis plan. In summary: ?? No routine ongoing anticoagulation ?? Continue low dose daily aspirin ?? Continue to wear compression stockings ?? Aggressive thromboprophylaxis around periods of temporarily increased VTE risk ?? Seek medical attention in the event of new VTE symptoms Harry Azevedo had the opportunity to ask questions and indicated that all his questions were answered to his satisfaction. I won't plan to see him back routinely but will be happy to see him back at any time as appropriate and would especially welcome the opportunity to help with thromboprophylaxis recommendations during temporary periods of high risk should the need arise. I will send him a letter with the results of protein C and protein S testing. Eliza Alarcon MD Clinical Staff Rn, [facility] documented in this encounter Plan of Treatment Not on file documented as of this encounter Visit Diagnoses Diagnosis DVT (deep venous thrombosis)- Primary Acute venous embolism and thrombosis of unspecified deep vessels of lower extremity Pulmonary emboli Other pulmonary embolism and infarction documented in this encounter Care Teams Forensic Accountant Relationship Specialty Start Date End Date Cha Miguel MD [address] [place] [address] PCP - General 05/21/12 01/20/15 documented as of this encounter
--- OUTSIDE RECORDS SUMMARY | 2024-03-29 16:52 | XMS_ITS | Encounter Summary ---
Author Organization [facility] Address [facility] [place] [address] Care Team Providers Care Coach Name Role Phone Cha Miguel MD Primary Care Provider [phone] Reason for Visit * Reason Comments Advice Only NPW Encounter Details Date Type Department Care Team (Late st Contact Info) Description 05/21/2012 1:45 PM EST Office Visit Hematology [place] [address] Eliza Bentley MD [facility] [address] [place] [address] Pulmonary emboli (Primary Dx); Leg swelling Discharge Disposition: Home Social History Tobacco Use Types Packs/Day Years Used Date Smoking Tobacco: Passive Smo ke Exposure - Never Smoker Cigars Sex and Gender Information Value Date Recorded Sex Assigned at Not on file Gender Identity Not on file Sexual Orientation Not on file documented as of this encounter Last Filed Vital Signs Vital Sign Reading Time Taken Comments Blood Pressure 100/70 05/21/2012 1:43 PM EST Pulse 92 05/21/2012 1:43 PM EST Temperature - - Respiratory Rate 16 05/21/2012 1:43 PM EST Oxygen Saturation 97% 05/21/2012 1:43 PM EST Inhaled Oxygen Concentration - - Weight 86 kg (189 lb 9.5 oz) 05/21/2012 1:43 PM EST Height 161.3 cm (5' 3.5) 05/21/2012 1:43 PM EST Body Mass Index 33.05 05/21/2012 1:43 PM EST documented in this encounter Progress Notes * Eliza Bentley MD - 05/21/2012 2:53 PM EST [facility] Department of Medicine [place] [address] [facility] THROMBOSIS CONSULTATION DATE OF VISIT 05/21/2012 Patient Porsha Cano 1965 REFERRING PHYSICIAN Ajay Latif MD PRIMARY CARE PHYSICIAN Cha Miguel MD REASON FOR CONSULTATION Anticoagulation recommendations HISTORY OF THE PRESENT ILLNESS Porsha Cano is a 46 y.o. man with a pulmonary embolism, who is seen in consultation at the request of Dr. Ajay Latif for anticoagulation recommendations. The history is obtained from the patient and his , Lisa, and I have reviewed medical records provided by the referring physician and travon mckeon in the electronic medical record to fill in gaps in the patient's recollection of events, treatments and outcomes. Porsha was enjoying his usual state of health until the end of January when he came home in the evening after a meeting and noted bilateral flank/shoulder blade pain. He thoughthe had injured a muscle while splitting wood the previous weekend and thought it would go away withrest. As time went on in the evening he was unable to find a comfortable position to sit, lay or stand and by 9 PM thought that he needed to get to the hospital right away. He crawled to his van and his drove him to [facility] where, his tells me, by about 3 AM he was diagnosed with pulmonary em boli, admitted and treated with heparin, then enoxaparin as a bridge to warfarin. Neither Porsha nor Lisa recalls how the diagnosis was made, and I have no records of the hospitalization to review. He has had intermittent leg swelling for many years and has had at least one ultrasound study on the left leg in the past, but no specific worsening of symptoms at this time and no duplex studies of the legs were performed at the time of the PE. I do not have the records associated with this hospitalvisit, so I do not know the exact evaluation that was performed and do not know the extent of pulmonary emboli or whether there was associated infarction, right heart strain etc. and whether there were other abnormalities in the lungs or abdomen. This is Porsha's first episode of VTE and there is no family history of VTE. 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 He can recall no potentially triggering factors for the VTE, including no recent travel, injury, surgery, trauma or hospitalization. According to Dr. Latif's progress note of 02/28/2012, he had hypercoagulable labs done. We have requested the results of these several times from Dr. Latif's office but despite receiving over 20 pages of laboratory data, the only relevant test results we have are a negative test for factor V Leiden, a factor 8 level of 143% and negative tests for IgG and IgM anticardiolipin antibodies. Dr. Latif's note refers to a prolonged DRVVT (70 sec) but there is no mention of the result of the confirmatory test for a lupus anticoagulant. A CBC was normal. Porsha is otherwise generally healthy with few in the way of thrombosis risk factors as noted below: THROMBOSIS RISK FACTORS Risk Factor Comment Obesity (BMI >30 kg/m2) V/A X Body mass index is 33.05 kg/(m^2). Diabetes V/A ? Hx hyperglycemia Current smoker V/A Estrogen or estrogen/progestin V/A V/A Inflammatory disease V/A Recent surgery (<3 months) V Recent hospitalization (<3 mo) V Recent travel (<3 mo) V Period of immobility V Documented thrombophilia V Accident/Trauma V/A Cancer or treatment for cancer V/A Blood transfusion V/A Central venous catheter V Family history (1st degree) V/A Varicose veins/venous insuff. V Hypertension A Hyperlipidemia A X Vascular disease A V: Risk factor for venous thrombosis; A: Risk factor for arterial thrombosis In the office today Porsha reports feeling well. His lung pain persisted for several weeks after the event but as of today his pulmonary symptoms have resolved and have not recurred. His legs continue to swell intermittently but he has no leg pain. He recalls an episode of left calf pain, heat and redness in the spring for which he was evaluated with a duplex ultrasound study that did not show a DVT. Symptoms eventually abated, though he developed similar symptoms in the right leg several weeks later but did not seek medical attention. These symptoms eventually abated as well. Since the PE he has changed his diet a bit and become more active in an effort to lose some weight.He has had no bleeding problems with warfarin but it is his stated preference NOT to remain on the medication if at all medically appropriate. He is interested in what may have caused this VTE event and in the best ways to prevent a recurrence. PAST MEDICAL HISTORY 1. Venous thromboembolism, 01/2012 as above Pulmonary embolism (?extent) Rx heparin, enoxaparin --> warfarin to current day 2. Hyperlipidemia 3. Hx hyperglycemia 4. Hx gout 5. Hx Wells's palsy OPERATIVE PROCEDURES 1. Tonsillectomy, 1975 2. Removal of foreign object from left foot, 2001 MEDICATIONS Warfarin Echinacea ADVERSE DRUG REACTIONS Allergies as of 05/21/2012 ??? (No Known Allergies) FAMILY HISTORY Mother is alive and generally well at age 75. Has problems with her back. No VTE Father at age 64 of complications of thyroid cancer. No VTE. Received thromboprophylaxis afteran accident One sister, alive and well. No VTE SOCIAL HISTORY to Lisa x many years. They live in [facility] Originally from [place], worked in [employer]. 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 HEENT: Oropharynx clear; no mucosal lesions, petechiae, bleeding, thrush or ulcers. NECK: Supple; no cervical, supraclavicular or submental adenopathy. CHEST/LUNGS: Clear to auscultation/percussion. No rales, rhonchi, wheezes. HEART: Regular rate and rhythm; no murmur, rub, gallop GASTROINTESTINAL: Abdomen soft, non-tender, no hepatosplenomegaly. GENITOURINARY: Exam deferred. EXTREMITIES: Trace ankle edema, left. No erythema, tenderness or palpable cords. No venous varicosities. Minimal golden phlebectatica right medial malleolusNo skin discoloration or hemosiderin deposits. Peripheral pulses palpable. MUSCULOSKELETAL: Spine nontender. Full ROM all joints. No acutely inflamed joints. SKIN: No ecchymoses, petechiae, ulcers or rashes. LYMPH: No palpable lymph nodes. NEUROLOGIC: Alert, oriented. Speech clear, coherent. No focal deficits noted. PSYCHIATRIC: Appropriate affect, no apparent distress. LABORATORY STUDIES Reviewed above; pending from today. RADIOGRAPHIC STUDIES None available. IMPRESSION Porsha Cano is a 46 y.o. man with what appears to be an episode of unprovoked VTE manifesting as what sounds like bilateral pulmonary emboli. He has had an incomplete evaluation for thrombophilia and would benefit from completing the testing as well as from risk stratification testing to better define his risk for a recurrent event so that he can be involved in decision-making regarding anticoagulation duration. Finally, he may have some venous insufficiency/valve incompetence that may contribute to thrombus formation and would benefit from a venous valve competence study to further define this. PLAN/RECOMMENDATIONS I reviewed my impression with Josefina. I reviewed the difference between an idiopathic VTE event and one that may have been precipitated by temporary risk factors (e.g., surgery, trauma, travel, hospitalization, immobilization) and discussed the additive nature of factors such as hereditary or acquired thrombophilia (e.g., factor V Leiden, PT [id number]), ABO blood type (non-O > O), dehydration, obesity, smoking varicose veins, diabetes, cancer, hormone use. I explained that the risk for developing a recurrent VTE is higher when theoriginal event was idiopathic than when it was associated with identifiable risk factors that have subsequently been eliminated. I explained that current [...] case, given that his VTE event was idiopathic, the risk for recurrence is as high as 20-30% over the two years following discontinuation of anticoagulation, but may be as low as 5-7% if he hasa low post-treatment D- dimer, given his age and sex. We reviewed the use of post-anticoagulation D-d brenton testing to further stratify his recurrence risk and he is interested in pursuing this. Accordingly, since he has received over 3 months of anticoagulation, it is appropriate to stop his warfarinfor 4 weeks in order to perform the post-treatment d-dimer test. I instructed him to stop warfarin today in favor of low dose daily aspirin (81 mg) as there is some recent evidence from the WARFASA trial supporting its use for secondary VTE prevention after completion of an appropriate course of anticoagulation for idiopathic VTE (Trixie et al., Aspirin for preventing the recurrence of venous t hromboembolism. N Engl J Med. 2011September 28;366(21):1959-67). In this study the risk for recurrent VTE was reduced by about 40% in the aspirin-treated group compared [...] robust, leading to a net benefit. I warned him that I may recommend restarting warfarin or other anticoagulation after I review the result of thepost-treatment d-dimer level. I also reviewed with him that though his risk for recurrent VTE during the 4 weeks he'll be off anticoagulation for the testing is low, it is not zero and I reviewed signs and symptoms of VTE and reminded him to seek medical attention expeditiously if these occur. In addition, I reviewed the results of thrombophilia testing performed to date. Given that I only have a negative factor V Leiden test and negative MARCI, I can only review these with him. He recalls having a lot of blood testing done, but I cannot obtain additional results from Dr. Latif's office. Moreover, it appears that any testing that was done was performed while he was taking warfarin, which interferes with testing for protein C and protein S levels and with the test for a lupus anticoagulant. Accordingly, I recommended that we fill in the gaps of his testing. We discussed the concept of hereditary and acquired thrombophilia and I reviewed with him that it is possible that he has a hereditary pre- disposition to VTE despite his relatively unremarkable family history. We discussed theidea that the presence or absence of one of these conditions has few, if any, implications for current or future anticoagulation recommendations but may have implications for family members. We reviewed the risks (potential for loss of privacy, insurance discrimination and heightened anxiety over re sults of genetic tests), benefits (potential explanation for VTE, guide for treatment, information for family members) and limitations (lack of predictive value for VTE recurrence risk) of testing, and he is interested in proceeding. Accordingly, he'll have his blood drawn today for a standard thrombophilia screening test panel, including antithrombin level, APC resistance, PT [id number] and antiphospholipid antibodies. Protein C and protein S levels will be excluded at this time, because he is taking warfarin and I will have these tests done at the follow up visit at the same time that he has the d-dimer level checked off warfarin for 4 weeks. Factor V Leiden will be excluded because he has had this test done and has a documented negative result. Finally, I would like to evaluate his lower extremity venous valve competence. Valvular incompetence results in turbulent venous flow and formation of small clots around the valves and may contributeto an increased risk for DVT/PE. The major treatment for this is the use of compressions stockings,which he will continue for now anyway. In summary: ?? Stop warfarin today in favor of low dose daily aspirin ?? Complete testing for hereditary and acquired thrombophilia today (excluding factor V Leiden) ?? Follow up in 4 weeks after warfarin hiatus for: ?? D-dimer risk stratification testing ?? Protein C and protein S testing ?? Bilateral venous valve competence study to assess for venous reflux ?? Continue to wear compression stockings ?? Follow up with me same day after above testing done to review results ?? Seek medical attention in the event of new VTE symptoms Porsha Cano had the opportunity to ask questions and indicated that all his questions were answered to his satisfaction. He has signed a release of information form so that we may obtain the hospital records from his evaluation at [facility], which I will review in advance of his follow up appointment with me. He will follow up with me on Jun 18 to discuss the results of the thrombosis and venous valve testing, and I will finalize my recommendations at that time. Eliza Bentley MD Entry Level Account Representative, [facility] documented in this encounter Plan of Treatment Not on file documented as of this encounter Procedures Procedure Name Priority Date/Time Associated Diagnosis Comments PROTHROMBIN MUT Routine 05/21/2012 2:39 PM EST TT Routine 05/21/2012 2:39 PM EST Pulmonary emboli PTT Routine 05/21/2012 2:39 PM EST Pulmonary emboli PT Routine 05/21/2012 2:39 PM EST Pulmonary emboli PLAT Routine 05/21/2012 2:39 PM EST Pulmonary emboli LANT Routine 05/21/2012 2:39 PM EST Pulmonary emboli FIBR Routine 05/21/2012 2:39 PM EST Pulmonary emboli THROMBOSIS SCREEN Routine 05/21/2012 2:3 9 PM EST Pulmonary emboli THS REPORT Routine 05/21/2012 2:39 PM EST Pulmonary emboli APC RESISTANCE Routine 05/21/2012 2:39 PM EST BETA-2 GLYCOPROTEIN ANTIBODIES Routine 05/21/2012 2:39 PM EST Pulmonary emboli CARDIOLIPIN ANTIBODY SCREEN Routine 05/21/2012 2:39 PM EST Pulmonary emboli ANTITHROMBIN Routine 05/21/2012 2:39 PM EST HOMOCYSTEINE TOTAL, PLASMA Routine 05/21/2012 2:39 PM EST Pulmonary emboli documented in this encounter Results * Venous Valvular Incomp, Bilat Legs (06/18/2012 8:23 AM EST) VB Text Report Department: Vascular Surgery Lab Patient: [id number] (PORSHA CANO) CPT Code: 42672 ICD-9: 799.02; 729.81 Referring Physician: ELIZA BENTLEY Indication: ?? Bilateral leg swelling and history [...] Report VASCUBASE 06/18/2012 8:23 AM EST Eliza Bentley MD VASCULAR ORDERABLE S VASCUBASE * D-Dimer, Quantitative (06/18/2012 8:15 AM EST) D-Dimer 296 0 - 500 FEU ng/ml [facility] Comment: The D-Dimer assay is used [...] Narrative Resulting Agency Comment Spec In Lab Eliaz Bentley MD HEMATOLOGY ORDERAB LES Performing Organization Address [facility] Co de Phone Number [facility] * Save Plasma for future Coag Studies (06/18/2012 8:15 AM EST) Pathologist [facility] Save Plasma Sample saved in Lab [facility] Blood specimen (specimen) 06/18/2012 8:15 AM EST 06/18/2012 8:34 AM EST Eliza Bentley MD HEMATOLOGY ORDERAB LES Performing Organization Address [facility] Co de Phone Number [facility] * (ABNORMAL) Protein C activity (06/18/2012 8:15 AM EST) Pathologist [facility] Protein C Activity 196(H) 67 - 156 % activity [facility] Blood specimen (specimen) 06/18/2012 8:15 AM EST 06/18/2012 8:34 AM EST Narrative Resulting Agency Comment Spec In Lab Eliza Bentley MD HEMATOLOGY ORDERAB LES Performing Organization Address [facility] de Phone Number [facility] * Protein S Activity (06/18/2012 8:15 AM EST) Pathologist [facility] Protein S Act 103 66 - 139 % activity [facility] Blood specimen (specimen) 06/18/2012 8:15 AM EST 06/18/2012 8:34 AM EST Narrative Resulting Agency Comment Spec In Lab Eliza Bentley MD HEMATOLOGY ORDERAB LES Performing Organization Address [facility] Co de Phone Number [facility] * PT Mut (05/21/2012 2:39 PM EST) [facility] Prothrombin Mutation Negative [facility] Prothrombin Mutation Interp RESULT: NEGATIVE FOR THE 69310B>A MUTATON IN THE 3' UNTRANSLATED REGION OF THE PROTHROMBIN GENE (([id number]) [id number] 3G>A). METHODS: The region of interest in the Prothrombin gene (31276E->A) is interrogated using a TaqMan allelic discrimination assay. Genomic DNA was isolated from the submitted peripheral blood specimen. Real-time PCR was performed to amplify a short region spanning the mutation site, and genotyping was performed by allelic discrimination using a mixture of fluorescently labeled probes, one of which is specific for the wild type gene, the other specific for the mutant gene. This assay was performed using analyte specific reagents which are regulated by the U.S. Food and Drug Administration. This test was developed and its performance characteristics determined by the Molecular Pathology Laboratory at [facility]. This test is used for clinical purposes and should not be considered as investigational or for research purposes. It has not been cleared or approved by the U.S. Food and Drug Administration. However, as a [employer] licensed laboratory, our facility is approved for such high complexity clinical testing. [facility] Comment: [VERIFIED DATE]05.31.12 Verified By:Rosenda Boateng MD Pathologist (Electronic Signature) Blood specimen (specimen) 05/21/2012 2:39 PM EST 05/22/2012 11:50 AM EST Narrative Resulting Agency Comment Spec In Lab Eliza Bentley MD HEMATOLOGY ORDERAB LES Performing Organization Address [facility] de Phone Number [facility] * Antithrombin (05/21/2012 2:39 PM EST) Pathologist [facility] Antithrombin III Assay 118 80 - 120 % [facility] Blood specimen (specimen) 05/21/2012 2:39 PM EST 05/21/2012 2:45 PM EST Narrative Resulting Agency Comment Spec In Lab Eliza Bentley MD HEMATOLOGY ORDERAB LES Performing Organization Address [facility] de Phone Number [facility] * APC resistance (05/21/2012 2:39 PM EST) Activated Protein C Resistance 2.56 >=2.00 [facility] Blood specimen (specimen) 05/21/2012 2:39 PM EST 05/21/2012 2:45 PM EST Narrative Resulting Agency Comment Spec In Lab Eliza Bentley MD HEMATOLOGY ORDERAB LES [facility] * Beta-2 glycoprotein antibodies (05/21/2012 2:39 PM EST) Beta 2 Glycoprotein, IgG <21 <=20 unit(s) [facility] Comment: Ranges ?Units ----- ? ----- Normal ? <21 Low Positive (+) ?21-50 Moderate Positive (+) ? 51-100 High Positive (+) ?>100 Beta 2 Glycoprotein, IgM <21 <=20 unit(s) [facility] Comment: Ranges ? Units ----- ?----- Normal ?<21 Low Positive (+) ? 21-50 Moderate Positive (+) ?51-100 High Positive (+) ? >100 B2GPI Interp See Thrombosis Screen Report in eDH under Coagulation Reports [facility] KIMBROUGH Blood specimen (specimen) 05/21/2012 2:39 PM EST 05/22/2012 8:18 AM EST Narrative Resulting Agency Comment Spec In Lab Eliza Bentley MD IMMUNOLOGY ORDERAB LES Performing Organization Address [facility] de Phone Number [facility] * Homocysteine Total, Plasma (05/21/2012 2:39 PM EST) Pathologist [facility] Homocystine 7 5 - 12 mcmol/L [facility] Comment:Reference Range appl ies to fasting specimens only. Blood specimen (specimen) 05/21/2012 2:39 PM EST 05/22/2012 8:13 AM EST Narrative Resulting Agency Comment Spec In Lab Eliza Bentley MD CHEMISTRY ORDERABL ES Performing Organization Address [facility] de Phone Number [facility] * Cardiolipin Antibody Screen (05/21/2012 2:39 PM EST) Cardiolipin Antibody IgG <23 <=22 GPL unit(s) [facility] Comment: Ranges ? GPL ------- ? ------ Normal ?<23 Low Positive ? 23-35 Moderate Positive ?36-50 High Positive ? >50 Cardiolipin Antibody IgM <11 <=10 MPL unit(s) [facility] Comment: Ranges ?MPL ----- ?----- Normal ?<11 Low Positive ? 11-20 Moderate Positive ?21-30 High Positive ? >30 Blood specimen (specimen) 05/21/2012 2:39 PM EST 05/22/2012 8:18 AM EST Narrative Resulting Agency Comment Spec In Lab Eliza Bentley MD IMMUNOLOGY ORDERAB LES Performing Organization Address [facility] Co de Phone Number [facility] * THS Report (05/21/2012 2:39 PM EST) THS Report See Comment CERNER MILLENNIUM Comment: See Thrombosis Screen Report [id number] under Coagulation Reports Blood specimen (specimen) 05/21/2012 2:39 PM EST 05/21/2012 2:45 PM EST Narrative Resulting Agency Comment Spec In Lab Eliza Bentley MD HEMATOLOGY ORDERAB LES Performing Organization Address [facility] de Phone Number [facility] * Plat (05/21/2012 2:39 PM EST) Platelet 225 145 - 370 x10(3)/mcL CERNER MILLENNIUM Blood specimen (specimen) 05/21/2012 2:39 PM EST 05/21/2012 2:45 PM EST Narrative Resulting Agency Comment Spec In Lab Eliza Bentley MD HEMATOLOGY ORDERAB LES Performing Organization Address [facility] de Phone Number [facility] * Lant (05/21/2012 2:39 PM EST) Lupus Anticoagulant Neg Neg [facility] Blood specimen (specimen) 05/21/2012 2:39 PM EST 05/21/2012 2:45 PM EST Narrative Resulting Agency Comment Spec In Lab Eliza Bentley MD HEMATOLOGY ORDERAB LES Performing Organization Address City/[facility]/ZIP Co de Phone Number [facility] * TT (05/21/2012 2:39 PM EST) Thrombin Time 18 15 - 20 sec CERGABY GARCESENNIUM Blood specimen (specimen) 05/21/2012 2:39 PM EST 05/21/2012 2:45 PM EST Narrative Resulting Agency Comment Spec In Lab Eliza Bentley MD HEMATOLOGY ORDERAB LES Performing Organization Address [facility] de Phone Number AMIE PETERSENIUM * FIBR (05/21/2012 2:39 PM EST) Fibrinogen 299 220 - 480 mg/dL AMIE GARCESENNIUM Blood specimen (specimen) 05/21/2012 2:39 PM EST 05/21/2012 2:45 PM EST Narrative Resulting Agency Comment Spec In Lab Eliza Bentley MD HEMATOLOGY ORDERAB LES Performing Organization Address [facility] de Phone Number AMIE PETERSENIUM * PTT (05/21/2012 2:39 PM EST) Partial Thromboplastin Time 35 25 - 35 sec CERGABY GARCESENNIUM Comment: Recommended therapeutic PTT range for full dose unfractionated heparin is 80-114 seconds. Blood specimen (specimen) 05/21/2012 2:39 PM EST 05/21/2012 2:45 PM EST Narrative Resulting Agency Comment Spec In Lab Eliza Bentley MD HEMATOLOGY ORDERAB LES Performing Organization Address [facility] de Phone Number AMIE PETERSENIUM * (ABNORMAL) PT (05/21/2012 2:39 PM EST) Prothrombin Time 23.0(H) 11.9 - 14.7 sec CERGABY MILLENNIUM Comment: [facility] Transfusion Committee Guidelines: INR less than 2.0, PTT less than OR equal to 43.5 seconds, or Fibrinogen greater than or equal to 100 mg/dl indicate adequate procoagulant activity for hemostasis in patients without underlying bleeding disorders. International Normalization Ratio 2.0(H) 0.9 - 1.1 AMIE GARCESENNIUM Blood specimen (specimen) 05/21/2012 2:39 PM EST 05/21/2012 2:45 PM EST Narrative Resulting Agency Comment Spec In Lab Eliza Bentley MD HEMATOLOGY ORDERAB LES AMIE KIMBROUGH documented in this encounter Visit Diagnoses Diagnosis Pulmonary emboli- Primary Other pulmonary embolism and infarction Leg swelling Swelling of limb documented in this encounter Care Teams Coach Relationship Specialty Start Date End Date Cha Miguel MD [address] [place] [address] PCP - General 05/21/12 01/20/15 documented as of this encounter
[2024-03-29 19:19] LABS: Anion Gap 11.9 mmol/L (3-11); BUN 19 mg/dL (7-18); CO2 25.1 mmol/L (21.0-32.0); CREATININE 1.3 mg/dL (0.70-1.30); Calcium 9.7 mg/dL (8.5-10.1); Calculated LDL 57 mg/dL (<100); Chloride 102 mmol/L (98-107); Cholesterol 154 mg/dL (<200); Estimated GFR 63.68 (mL/min/1.73m2); Glucose 130 mg/dL (74-106); HDL Cholesterol 61 mg/dL (40-60); Potassium 4.1 mmol/L (3.5-5.1); Sodium 139 mmol/L (136-145); Triglyceride 182 mg/dL (<150)
== END 2024-03-29 16:36 | disposition home or self-care (01) ==
LOC: NCHCN 16:35
PROVIDERS: PCP Family Medicine; Visit Provider Student in an Organized Health Care Education/Training Program
DX: E78.5 Hyperlipidemia, unspecified (principal); I10 Essential (primary) hypertension
CPT/HCPCS: 80048; 80061

== ENCOUNTER 2024-10-23 14:07 | Outpatient (REF) | payer BC, SELFPAY ==
[2024-10-23 16:58] LABS: COMMENT (LAB VIEW ONLY) 197.04 mg/dL; Microalb ug/mg Crea 7.6 ug/mg Cr
== END 2024-10-23 14:08 | disposition home or self-care (01) ==
LOC: NCHCN 14:07
PROVIDERS: PCP Family Medicine; Visit Provider Family Medicine
DX: E11.9 Type 2 diabetes mellitus without complications (principal); Z79.4 Long term (current) use of insulin
CPT/HCPCS: 82043; 82570

== ENCOUNTER 2025-03-07 08:51 | Day surgery (SDC) | payer BC, SELFPAY ==
--- NOTE | 2025-03-06 17:13 | PDOC.DSDIS_ITS ---
Date of service: 03/07/25 Discharge Plan Disposition Patient Disposition: Home Condition: Good Discharge Details Reason For Visit: Screening colonoscopy Attending Provider: Emory Tovar Primary Care Provider: Chapincito Dennis Home Meds and New Rx's Prescriptions: Continued Januvia 50 mg tablet 50 mg PO DAILY Xarelto 10 MG tablet 20 mg PO DAILY Patient Comments: stopped as he is seeing a homeopath who recommended other options clotrimazole [Antifungal (clotrimazole)] 1 % cream 1 applic TP BID acetaminophen 500 mg capsule 500 mg PO Q6H PRN valsartan 160 mg tablet 160 mg PO DAILY cholecalciferol (vitamin D3) 25 mcg (1,000 unit) capsule 25 mcg PO DAILY atorvastatin 10 mg tablet 10 mg PO QHS colchicine 0.6 mg capsule 0.6 mg PO DAILY PRN glipizide 5 mg tablet extended release 24hr 5 mg PO DAILY metformin 500 mg tablet 850 mg PO BID Discontinued bisacodyl [Dulcolax (bisacodyl)] 5 mg tablet,delayed release (DR/EC) 5 mg PO ONCE Qty: 4 0RF Rx Instructions: Take per colonoscopy instructions provided by ordering providers office polyethylene glycol 3350 17 gram/dose powder 17 g PO ONCE Qty: 238 0RF Rx Instructions: Take per colonoscopy instructions provided by ordering providers office Discharge Instructions Instructions: Colon polyps Additional Instructions: Harry, it was a pleasure meeting you today, and I hope you feel well after the procedure. Things went very smoothly. Your prep was excellent, and I could see everything fine. I did find, and removed 2 polyps today. Both of these are small, and certainly nothing to worry about. I will send them both to the p athologist for them to review. Polyps, different types, and I use the polyp analysis to help guide the timing of future colonoscopies. Those results will take about a week or 2 to get back, as soon as I have that information I will be in touch. If you need anything or have any questions in the meantime, please do not hesitate to ask. 1. If tolerated, consume a soft, low fiber diet for 1-2 days. 2[address] Do not drive, drink alcohol, operate machinery, make critical decisions, or do activities that require coordination or balance for 24 hours. 3. Because air was put into your colon during the procedure, expelling air from your rectum (passing gas or farting) is normal. 4. You may not have a bowel movement for 1-3 days because of the colonoscopy prep. This is normal. 5. Go directly to the emergency room if you notice any of the following: Develop chills (warm to touch), or if you have a thermometer and your temperature is above 101 Difficulty breathing or difficultly swallowing Persistent vomiting Severe abdominal pain, other than gas cramps Severe chest pain Black, tarry stools Any bleeding – exceeding one tablespoon 6. Call your physician if the site where your intravenous was started becomes red, swollen, painful, and warm to touch. 7. Your physician has reviewed your pre-procedure medications. Please continue to take those medications as previously ordered. You will be given specific information/education regarding any changes to your medications before leaving. Stand Alone Forms: Anesthesia Discharge InstShane Coleman (DSU) Activity:: Activity as Tolerated Diet:: As Tolerated Discharge Orders Discharge Orders: Discharge Order (Routine); Ordered 03/06/25 Ordered By: Emory Tovar DS: Diagnosis Discharge Diagnosis (1) Encounter for screening colonoscopy: Status: Acute Asessment and Plan: Follow-up on polypectomy results
--- NOTE | 2025-03-06 17:14 | W.COLOREPORT ---
Date of service: 03/07/25 Time of Service: 11:16 Colonoscopy Report Date of procedure: 03/07/25 Pre-op diagnosis general: screening colonoscopy Post-op diagnosis procedure note: other (Colon polyps) Procedure: Colonoscopy with polypectomy Surgeon: Emory Tovar Anesthesia Type: General:No Airway Estimated blood loss (mL): 5 Pathology: other (0.25 cm flat ascending colon polyp, 0.25 cm flat polyp at 65 cm) Complications: None Disposition: same day Indications: Harry is a 59-year-old male with a history of adenomatous polyps who needs his next screening colonoscopy Prep: Miralax/Dulcolax Procedure Start Time: 10:53 Procedure End Time: 11:10 Retraction Time: 8 Findings: 0.25 cm flat polyp in the ascending colon, 0.25 cm flat polyp at 65 cm Procedure Description: After the induction of anesthesia, and with the patient in left lateral decubitus position, I began by performing an external anorectal exam. Perineum and skin were normal, as was the anal verge. There was no evidence of external hemorrhoids. Next, I performed a digital rectal exam. Next, I advanced a colonoscope into the rectal vault. I performed retroflexion. There is a fibroepithelial polyp at the top portion of the anal column. Narrowband imaging was used to assist with the analysis. This was left in situ. Using irrigation, I then advanced the colonoscope beyond the rectal folds and into the sigmoid colon before advancing towards the cecum. Just above the cecum, within the ascending colon is a 0.5 cm flat polyp. This was removed with cold forceps with minimal bleeding. The scope was noted to be in the cecum by identification of the ileocecal valve and appendiceal orifice. I then began withdrawing the colonoscope using repeated irrigation as necessary for full evaluation of the colonic mucosa. Around 65 cm from the anal verge I identified a 0.25 cm polyp. It appeared flat in character. I was able to remove this with a cold forceps polypectomy. I examined the site, and there was minimal bleeding. Once this was completed, I continued to withdraw the scope and examine the remainder of the colonic mucosa. Once the scope was withdrawn to the level of the rectum, great care was taken to examine portions of the rectal folds. Finally, the scope was withdrawn and the patient was brought to the same-day surgery recovery unit as the anesthetic wore off. The findings and instructions were shared with the patient prior to discharge. [place] Bowel Prep [place] Bowel Prep Right Colon: 3 Left Colon: 3 Transverse Colon: 3 Total Score: 9
[2025-03-07 09:12] VITALS: BP 114/79; PULSE 81; RESP 20; TEMP 36.4; O2SAT 98
[2025-03-07] MEDS: Lactated Ringers 1,000 ML 80 ML IV (09:23)
--- NOTE | 2025-03-07 10:40 | W.ANESPRE ---
General Info Date of Service Date Performed: 03/07/25 Height: 5 ft 4 in Weight: 80.6 kg Body Mass Index (BMI): 30.4 Surgical Procedure: Operation Date: 03/07/25 10:35 Proposed Procedure Side Surgeon p Ysabel Tovar MD Meds Allergies and Home Medications Allergies Allergy/AdvReac Type Severity Reaction Status Date / Time hay fever AdvReac Mild Wheezing Uncoded 03/07/25 09:16 Home Medication Medication Instructions Recorded rivaroxaban 10 mg tablet (Xarelto) 20 mg PO DAILY 09/11/14 acetaminophen 500 mg capsule 500 mg PO Q6H PRN 11/04/19 cholecalciferol (vitamin D3) 25 25 mcg PO DAILY 11/04/19 mcg (1,000 unit) capsule clotrimazole 1 % topical cream 1 applic topical BID 11/04/19 (Antifungal (clotrimazole)) valsartan 160 mg tablet 160 mg PO DAILY 11/04/19 atorvastatin 10 mg tablet 10 mg PO QHS 10/14/24 colchicine 0.6 mg capsule 0.6 mg PO DAILY PRN 10/14/24 glipizide 5 mg tablet, extended 5 mg PO DAILY 10/14/24 release 24 hr metformin 500 mg tablet 850 mg PO BID 02/20/25 sitagliptin phosphate 50 mg tablet 50 mg PO DAILY 02/20/25 (Rickie) Current Visit Medications: Current Medications Generic Name Dose Route Start Last Admin Trade Name Freq PRN Reason Stop Dose Admin Ringer's Solution 1,000 mls @ 80 mls/hr 03/07/25 06:00 03/07/25 09:23 IV 03/07/25 23:59 80 mls/hr INFUSION MP Administration IV Miscellaneous Supplies 1 each 03/07/25 06:00 Iv Access IV 03/07/25 23:59 DIRECTED MP Sodium Chloride 0 ml 03/07/25 06:00 Normal Saline Flush 10 Ml Syr IV 03/07/25 23:59 PRN PRN Sodium Chloride 0 ml 03/07/25 06:00 Normal Saline 10 Ml Vial IJ 03/07/25 23:59 DIRECTED PRN Sterile Water 0 ml 03/07/25 06:00 Water,Injection,Sterile 10 Ml Vial IJ 03/07/25 23:59 DIRECTED PRN PFSH Active Problems Active Problems: Problem Status Onset Code Encounter for screening colonoscopy Acute Z12.11 Gout Chronic M10.9 Hyperlipidemia Acute E78.5 Tubular adenoma of colon Acute D12.6 Erosive gastritis Acute K29.60 GERD with esophagitis Acute K21.0 T2DM (type 2 diabetes mellitus) Acute E11.9 HTN (hypertension) Chronic I10 Toe pain Acute M79.676 Actinic keratoses Acute L57.0 Medical History Medical History Hx of Wells's palsy Family history of gout Nephrolithiasis Tubular adenoma 10/2014 w/ Dr. Leda Ko, repeat 5 years. 01/2020 w/Dr. Ko, repeat 5 years Obesity DVT of leg (deep venous thrombosis) PE (pulmonary embolism) 2011 Metabolic syndrome Dyslipidemia Diabetes Paraneoplastic syndrome pt. unaware states he has never had cancer Surgical History Surgical History S/P colonoscopy (~01/20/20) 10/2014- Tubular adenoma 01/2020- Tubular adenomas x2 Tonsillectomy and adenoidectomy Removal of foreign body left foot Tobacco Smoking/Tobacco Use Status: Current-Occasional Tobacco Type: cigars Passive smoking exposure: No Alcohol Alcohol Intake: current Alcohol intake frequency: a few times a month Alcohol type: beer Substance Use Substance use: Occasionally Substance use type: marijuana Details: alcohol: t-4, two beers. Marijuana: t-4, couple hits Vital Signs and Lab Results Vital Signs Most Recent Vital Signs in EMR: Most Recent Vital Signs Temp Pulse Resp BP Pulse Ox 36.4 C L 81 20 114/79 98 03/07/25 09:12 03/07/25 09:12 03/07/25 09:12 03/07/25 09:12 03/07/25 09:12 Point of Care Results Point of Care Results: Finger Stick Blood Glucose 229 03/07/25 09:14 Imaging and Studies Imaging and Studies Study information below may be from another EMR and interpreted by another provider. Please see original notes in EMR for more complete details. Stress Test Summary: 04/15/16: Echocardiogram Summary: 01/08/14: FINDINGS: LEFT VENTRICLE/LVEF: Normal size. Normal function. EF 60-65%. No wall motion abnormalities. RIGHT VENTRICLE: Normal size and function. AORTIC VALVE: Trileaflet, mildly thickened, mobility not restricted. No regurgitation or stenosis. MITRAL VALVE: Mildly thickened leaflets. Trivial regurgitation, no stenosis. TRICUSPID VALVE: Structurally normal. No Trivial regurgitation. No stenosis. RSV/PA/RIGHT ATRIAL PRESSURE: Pulmonary artery pressures not obtained. PULMONIC VALVE: Grossly normal. Trivial regurgitation. No stenosis. ATRIA: Normal size. DIASTOLIC INDICES: Normal diastolic function for age. Aorta normal size. GREAT VESSELS: IVC not visualized. PERICARDIUM: No effusion. Anesthesia Assessment and Plan Anesthesia History Personal History: No History of Anesthesia Complications Family History: No Family History of Anesthesia Complications Exercise Tolerance Exercise Tolerance: Metabolic Equivalents>4 Pertinent Negatives Pertinent Negatives: No Symptoms of GERD, No Major Cardiovascular Symptoms or Complaints and No Major Pulmonary Symptoms or Complaints Cardiac & Pulmonary Exam Cardiac Exam: Normal S1/S2 Heart Sounds Pulmonary Exam: Clear Bilateral Breath Sounds Implantable Cardiac Device Does patient have a Pacemaker or an ICD?: No Airway Exam Known Difficult Airway: No Mallampati Class: 2 Mouth Opening: Normal (> 3cm) Thyromental Distance: Greater than 3 cm Neck Range of Motion: Full ROM Neck Circumference: Normal Teeth Condition: Normal Dentition ASA Classification ASA Score: ASA 3 Emergency Case?: No NPO Status NPO Status: NPO Clears >2 hours, Solids >8 hours Anesthesia Plan Resuscitation Status: Full Code Anesthesia Technique: General Anesthesia Airway Planned: Natural Airway Monitors Used: Standard Monitors
[2025-03-07 10:42] VITALS: BMI 30.4
--- NOTE | 2025-03-07 11:00 | BOWEL_PTH ---
PATIENT: Harry Cano LOC: [facility] U#:[id number] AGE/SX: 59/M ROOM: RE03/07/[address]: Emory Tovar MD : 1965 BED: DIS: 03/07/2025 SPEC #: [id number] RECD: 03/07/25 12:57 STATUS: GUEVARA RE #: [id number] QUINTON: 03/07/25 11:[address]: Emory Tovar DEPT: Surgical Specimen RECD BY: Farnaz Ramires ENTERED: 03/07/25 12:58 SP TYPE: Bowel OTHR DR: Chapincito Dennis Tissues: 1 - BIOPSY BOWEL 2 - BIOPSY BOWEL Procedures: GROSS AND MICRO LEVEL 4 Comments: [id number]
[2025-03-07 11:16] VITALS: BP 117/78; PULSE 83; RESP 14; TEMP 36.6; O2SAT 98
--- NOTE | 2025-03-07 11:34 | W.ANESPOSTOP ---
Postoperative Evaluation Date, Time and Location Date Performed: 03/07/25 Time Performed: 11:20 Patient Location: Day Surgery Unit Vital Signs Most Recent Imported Vital Signs: Most Recent Vital Signs Temp Pulse Resp BP Pulse Ox 36.6 C 83 14 117/78 98 03/07/25 11:16 03/07/25 11:16 03/07/25 11:16 03/07/25 11:16 03/07/25 11:16 Pain Score Most Recent Pain Score: Most Recent Pain Score Pain Level 0 03/07/25 11:16 Assessment Mental Status: Awake (Alert & Oriented to Patient Baseline) Airway and Respiratory Function: Patent airway with normal (patient baseline) respiratory exam Cardiovascular Function: Hemodynamically Stable Hydration Status: Adequately Hydrated Nausea & Vomiting: No Nausea or Vomiting Pain: Pt. Denies Any Pain Peripheral Nerve Block: Patient did not receive a nerve block
[2025-03-07 11:35] VITALS: BP 135/110; PULSE 78; RESP 16; TEMP 36.6; O2SAT 100
== END 2025-03-07 11:48 | disposition home or self-care (01) ==
LOC: SUR 08:52
PROVIDERS: PCP Student in an Organized Health Care Education/Training Program; Visit Provider Surgery
PROC: 0DJD8ZZ Inspection of Lower Intestinal Tract, Via Natural or Artificial Opening Endoscopic (ICD-10-PCS; CPT 45378; principal; 2025-03-07 10:30)
DX: Z12.11 Encounter for screening for malignant neoplasm of colon (principal); D12.2 Benign neoplasm of ascending colon
CPT/HCPCS: 45380; 88305; J2704